=== PATIENT | male | born 1965 | race Caucasian/White ===

== ENCOUNTER 2016-09-24 00:58 | Inpatient (IN) | payer BC ==
[~2016-09-24] VITALS: Ht 167.6 cm; Wt 87.6 kg
[2016-09-24] MEDS ORDERED: MoRPHine SULFATE 4 MG/ML 1 ML CARP\\VIAL IV STA ×2 (01:12→02:37)
[2016-09-24] MEDS ORDERED: ONDANSETRON INJ 2 MG/ML 2 ML VIAL IV STA (01:12)
[2016-09-24] MEDS ORDERED: SODIUM CHLORIDE 0.9% 1000ML 1,000 ML IV STA (01:12)
[2016-09-24 01:39] LABS: BASO % 0.8 %; BASO ABS # 0.06 K/uL (0-0.2); COMPLETE YES; EOS % 4.4 %; HEMATOCRIT 42.5 % (42-52); IG% 0.3 %; LYMPH % 18.9 %; LYMPH ABS # 1.41 K/uL (1.2-3.4); MEAN CELL VOLUME 89.1 fL (80-100); MEAN CORPUSCULAR HEMOGLOBIN 32.9 pg (25-34); MEAN CORPUSCULAR HGB CONC 36.9 g/dl (32-36); MONO % 6.6 %; PLATELET COUNT 220 K/uL (130-400); RED BLOOD COUNT 4.77 M/uL (4.7-6.1); WHITE BLOOD COUNT 7.48 K/uL (4.8-10.8)
[2016-09-24] MEDS ORDERED: ASCO1CAP3 PO (01:45)
[2016-09-24 01:57] LABS: ALT/SGPT 26 U/L (12-78); AST/SGOT 17 U/L (15-37); BLOOD UREA NITROGEN 19 mg/dl (7-18); BUN/CREATININE RATIO 23.1 (10-20); CALCIUM 8.5 mg/dl (8.5-10.1); CARBON DIOXIDE 25 mmol/L (21-32); CHLORIDE 107 mmol/L (98-107); GLUCOSE 119 mg/dl (70-99); POTASSIUM 3.9 mmol/L (3.5-5.1); SODIUM 142 mmol/L (136-145)
[2016-09-24 02:02] LABS: ALKALINE PHOSPHATASE 91 U/L (45-117); CKMB/CK RATIO 0.8 (0-3.0)
[2016-09-24] MEDS ORDERED: OPTIRAY 320 IV PRN (03:15)
[2016-09-24] MEDS ORDERED: HYDROmorphone INJ 1 MG/ML SYR IV STA (03:28)
[2016-09-24 04:57] LABS: AMYLASE 75 U/L (25-115)
[2016-09-24] MEDS ORDERED: HYDROmorphone INJ 0.5 MG/0.5 ML SYR IV STA (05:50)
--- NOTE | 2016-09-24 05:50 | EMERGENCY ROOM VISIT NOTE ---
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 States, "I think I have a gallstone." Recently ate peanuts and pizza. Denies n/v. History of Present Illness The patient is a 51 year old male who presents to the Emergency Room with complaints of epigastric pain for the past 3 hours described as aching, ranging in severity 5 out of 10. Patient had pizza tonight. No history of similar symptoms in the past. No recent alcohol. Patient denies chest pain, dyspnea, fever, chills, vomiting, diarrhea, diaphoresis, leg pain or swelling. Review of Systems See HPI for pertinent positives & negatives. A total of 10 systems reviewed and were otherwise negative. Past Medical/Surgical History Medical Problems: (1) Kidney stone Family History Diabetes mellitus Heart disease Kidney disease Social History Smoking Status: Never Smoker Marital Status: Occupation Status: employed Current/Historical Medications Scheduled Ascorbic Acid (Vitamin C), 500 MG PO DAILY Allergies Coded Allergies: No Known Allergies (Unverified , 09/24/16) Physical Exam Vital Signs Date Time Temp Pulse Resp B/P Pulse Ox O2 Delivery O2 Flow Rate FiO2 09/24/16 03:49 61 18 132/82 96 Room Air 09/24/16 02:36 57 16 140/87 95 Room Air 09/24/16 01:36 Room Air 09/24/16 01:36 Room Air 09/24/16 01:03 36.6 57 18 190/105 95 Room Air Physical Exam VITALS: Vitals are noted on the nurse's note and reviewed by myself. Vital signs hypertensive GENERAL: Pleasant male, in no acute distress, nondiaphoretic, well-developed well-nourished. SKIN: The skin was without rashes, erythema, edema, or bruising. There is no tenting of the skin. Capillary reflex less than 2 seconds. HEAD: Normocephalic atraumatic. EARS: External auditory canals clear, tympanic membranes pearly lubin without erythema or effusion bilaterally. EYES: Pupils equal round and reactive to light and accommodation. Conjunctivae without injection, sclerae without icterus. Extraocular movements intact. NOSE: Patent, turbinates without inflammation or discharge. MOUTH: Mucous membranes moist. Pharynx without erythema or exudate. Uvula midline. Airway patent. Tongue does not deviate. NECK: Supple without nuchal rigidity. No lymphadenopathy. No thyromegaly. Cervical spine is nontender. No JVD. HEART: Regular rate and rhythm without murmurs gallops or rubs. LUNGS: Clear to auscultation bilaterally without wheezes, rales or rhonchi. No dullness to percussion. No retractions or accessory muscle use. ABDOMEN: Positive bowel sounds x 4. Normal tympanic percussion. Soft, tender to palpation epigastric region, no CVA tenderness, without masses or organomegaly. No guarding or rebound tenderness. MUSCULOSKELETAL: No muscle atrophy, erythema, or edema noted. NEURO: Patient was alert and oriented to person place and time. Normal sensation to light and sharp touch. No focal neurological deficits. Medical Decision & Procedures Laboratory Results 09/24/16 01:30 Red Blood Count 4.77, Mean Corpuscular Volume 89.1, Mean Corpuscular Hemoglobin 32.9, Mean Corpuscular Hemoglobin Concent 36.9, Mean Platelet Volume 10.0, Neutrophils (%) (Auto) 69.0, Lymphocytes (%) (Auto) 18.9, Monocytes (%) (Auto) 6.6, Eosinophils (%) (Auto) 4.4, Basophils (%) (Auto) 0.8, Neutrophils # (Auto) 5.17, Lymphocytes # (Auto) 1.41, Monocytes # (Auto) 0.49, Eosinophils # (Auto) 0.33, Basophils # (Auto) 0.06 09/24/16 01:30 Test 09/24/16 01:30 09/24/16 05:05 White Blood Count 7.48 K/uL (4.8-10.8) Red Blood Count 4.77 M/uL (4.7-6.1) Hemoglobin 15.7 g/dL (14.0-18.0) Hematocrit 42.5 % (42-52) Mean Corpuscular Volume 89.1 fL (80-100) Mean Corpuscular Hemoglobin 32.9 pg (25-34) Mean Corpuscular Hemoglobin Concent 36.9 g/dl (32-36) Platelet Count 220 K/uL (130-400) Mean Platelet Volume 10.0 fL (7.4-10.4) Neutrophils (%) (Auto) 69.0 % Lymphocytes (%) (Auto) 18.9 % Monocytes (%) (Auto) 6.6 % Eosinophils (%) (Auto) 4.4 % Basophils (%) (Auto) 0.8 % Neutrophils # (Auto) 5.17 K/uL (1.4-6.5) Lymphocytes # (Auto) 1.41 K/uL (1.2-3.4) Monocytes # (Auto) 0.49 K/uL (0.11-0.59) Eosinophils # (Auto) 0.33 K/uL (0-0.5) Basophils # (Auto) 0.06 K/uL (0-0.2) RDW Standard Deviation 38.8 fL (36.4-46.3) RDW Coefficient of Variation 12.2 % (11.5-14.5) Immature Granulocyte % (Auto) 0.3 % Immature Granulocyte # (Auto) 0.02 K/uL (0.00-0.02) Anion Gap 10.0 mmol/L (3-11) Est Creatinine Clear Calc Drug Dose 114.5 ml/min Estimated GFR () 120.7 Estimated GFR (Non- 104.2 BUN/Creatinine Ratio 23.1 (10-20) Calcium Level 8.5 mg/dl (8.5-10.1) Total Bilirubin 0.3 mg/dl (0.2-1) Direct Bilirubin < 0.1 mg/dl (0-0.2) Aspartate Amino Transf (AST/SGOT) 17 U/L (15-37) Alanine Aminotransferase (ALT/SGPT) 26 U/L (12-78) Alkaline Phosphatase 91 U/L (45-117) Total Creatine Kinase 107 U/L (39-308) Creatine Kinase MB 0.9 ng/ml (0.5-3.6) Creatine Kinase MB Ratio 0.8 (0-3.0) Total Protein 7.4 gm/dl (6.4-8.2) Albumin 3.9 gm/dl (3.4-5.0) Amylase Level 75 U/L (25-115) Lipase 230 U/L (73-393) Lactic Acid Level 1.0 mmol/L (0.4-2.0) Medications Administered Medications (Trade) Dose Ordered Sig/Pamela Route Start Time Stop Time Status Last Admin Dose Admin Ondansetron HCl (Zofran Inj) 4 mg NOW STAT IV 09/24/16 01:12 09/24/16 01:14 DC 09/24/16 01:28 4 MG Morphine Sulfate 4 mg 4 mg NOW STAT IV 09/24/16 01:12 09/24/16 01:14 DC 09/24/16 01:28 4 MG Sodium Chloride (Nss 1000ml) 1,000 ml @ 200 mls/hr Q5H STAT IV 09/24/16 01:12 09/24/16 06:11 09/24/16 01:28 200 MLS/HR Morphine Sulfate (MoRPHine SULFATE INJ) 4 mg NOW STAT IV 09/24/16 02:37 09/24/16 02:38 DC 09/24/16 02:41 4 MG Hydromorphone HCl (Dilaudid Inj) 1 mg NOW STAT IV 09/24/16 03:28 09/24/16 03:29 DC 09/24/16 03:37 1 MG ED Course Prior records/ancillary studies reviewed. Triage Nursing notes reviewed. The patient's history was concerning for abdominal pain. Differential diagnosis: Etiologies such as appendicitis, diverticulitis, PUD, cardiac, biliary pathology , UTI, pancreatitis, obstruction, mesenteric ischemia, aortic pathology, infections, inflammatory bowel disease, renal colic, as well as others were entertained. Physical examination findings: As above. ER treatment provided: Morphine, Zofran, IV fluids On reassessment the patient felt better. Diagnostics interpreted by me: ECG: Normal sinus, normal intervals, no acute ST-T wave changes. Impression normal sinus rhythm interpreted by myself The labs revealed a negative lactic acid. Negative troponin No worrisome leukocytosis Imaging studies: CTA CHEST: No thoracic aortic aneurysm, dissection, or intramural hematoma. Lungs are clear. No pleural effusion or pneumothorax. Heart size is normal. No pericardial effusion. CTA ABDOMEN & PELVIS: No abdominal aortic aneurysm or dissection. Focal bowel wall thickening and mesenteric edema involving a segment of small bowel in the right hemiabdomen. Findings are compatible with enteritis, likely infectious versus inflammatory or less likely ischemic. Small amount of free fluid adjacent to the above process. No free air. No evidence of bowel obstruction. Appendix is normal. Gallbladder, pancreas, spleen, adrenals, and kidneys are unremarkable., Tiny hypodensity in the left hepatic lobe, too small to characterize but likely a cyst. Anatomic variant with the common hepatic artery arising directly from the aorta. Radiologist: Torito Coats MD Chest x-ray with no acute consolidation or pneumothorax or free air per my interpretation Consultation: A consultation was placed with the hospitalist, Dr. Edwards. The case was discussed and diagnostics were reviewed. The patient was evaluated in the ER for further treatment. Exam and history seem consistent with enteritis with intractable pain. Patient was given multiple rounds of pain medicine was still uncomfortable. He will be evaluated by medicine for possible admission. He had a negative lactic acid. I did not believe this is ischemic bowel. By the evaluation outlined above emergent etiologies such as appendicitis, diverticulitis, PUD, biliary pathology, UTI, pancreatitis, obstruction, mesenteric ischemia, aortic pathology, infections, inflammatory bowel disease, renal colic, as well as others were deemed relatively unlikely. The pt informed about the findings as listed above. All questions were answered and pleased with the treatment. case reviewed with my Attending Medical Decision As above Impression Primary Impression: Enteritis Additional Impression: Intractable epigastric abdominal pain Departure Information Referrals Jason Flores III, CRNP (PCP) Patient Instructions My [facility] Problem Qualifiers
--- NOTE | 2016-09-24 06:16 | History and Physical ---
History & Physical Date & Time of Service: Sep 24, 2016 at 05:47 Chief Complaint: Abd Pain Primary Care Physician: Jason Flores III, CRNP History of Present Illness Source: patient 51 y/o M who denies any significant medical Hx presents with moderate to severe R sided abdominal pain. Pt denies N/V/D or fevers. He had a normal BM and 3 slices of pizza a few hours prior to the onset of pain. A CT abdomen was consistent with enteritis affecting a small segment of small bowel in the R hemiabdomen. The pt received several doses of pain medication in the ER but exhibited recurrence and then became very nauseous after trying to drink a glass of water. As his pain remains present and he is unable to tolerate PO, he will be admitted for pain management, IVF and antiemetics. 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 Smoking Status: Never Smoker Marital Status: Occupational Status: employed Multi-Drug Resistant Organisms History of MDRO: No Allergies Coded Allergies: No Known Allergies (Unverified , 09/24/16) Home Medications Scheduled Ascorbic Acid (Vitamin C), 500 MG PO DAILY Review of Systems Constitutional: No chills, No fever, No sweats Eyes: No eye pain, No worsening of vision ENT: No hearing loss, No nasal symptoms, No unusual epistaxis Respiratory: No cough, No sputum, No wheezing Cardiovascular: No PND, No chest pain, No orthopnea Abdomen: + nausea, + pain Musculoskeletal: No joint pain, No muscle pain Genitourinary - Male: No dysuria, No hematuria, No urinary frequency, No urinary urgency Neurologic: No memory loss, No paralysis, No weakness Hematologic / Lymphatic: No abnormal bleeding/bruising Integumentary: No rash Allergic / Immunologic: No environmental allergies Physical Exam Vital Signs Date Time Temp Pulse Resp B/P Pulse Ox O2 Delivery O2 Flow Rate FiO2 09/24/16 03:49 61 18 132/82 96 Room Air 09/24/16 02:36 57 16 140/87 95 Room Air 09/24/16 01:36 Room Air 09/24/16 01:36 Room Air 09/24/16 01:03 36.6 57 18 190/105 95 Room Air General Appearance: WD/WN, no apparent distress Head: normocephalic Eyes: normal inspection, EOMI ENT: normal ENT inspection, hearing grossly normal, TMs normal, pharynx normal Neck: supple, no JVD Respiratory/Chest: chest non-tender, lungs clear, normal breath sounds, no respiratory distress, no accessory muscle use Cardiovascular: regular rate, rhythm, no edema, no gallop, no JVD, no murmur, normal peripheral pulses Abdomen/GI: normal bowel sounds, soft, + tenderness (Diffuse mild tenderness - no guarding or rebound) Back: normal inspection, no CVA tenderness Extremities/Musculoskelatal: normal inspection, no calf tenderness, normal capillary refill, no pedal edema, normal range of motion Neurologic/Psych: airway traffic controller II-XII nml as tested, no motor/sensory deficits, alert, normal mood/affect, normal reflexes, oriented x 3 Skin: normal color, warm/dry, no rash Diagnostics Laboratory Results Results Past 24 Hours Test 09/24/16 01:30 09/24/16 05:05 Range/Units White Blood Count 7.48 4.8-10.8 K/uL Red Blood Count 4.77 4.7-6.1 M/uL Hemoglobin 15.7 14.0-18.0 g/dL Hematocrit 42.5 42-52 % Mean Corpuscular Volume 89.1 80-100 fL Mean Corpuscular Hemoglobin 32.9 25-34 pg Mean Corpuscular Hemoglobin Concent 36.9 32-36 g/dl Platelet Count 220 130-400 K/uL Mean Platelet Volume 10.0 7.4-10.4 fL Neutrophils (%) (Auto) 69.0 % Lymphocytes (%) (Auto) 18.9 % Monocytes (%) (Auto) 6.6 % Eosinophils (%) (Auto) 4.4 % Basophils (%) (Auto) 0.8 % Neutrophils # (Auto) 5.17 1.4-6.5 K/uL Lymphocytes # (Auto) 1.41 1.2-3.4 K/uL Monocytes # (Auto) 0.49 0.11-0.59 K/uL Eosinophils # (Auto) 0.33 0-0.5 K/uL Basophils # (Auto) 0.06 0-0.2 K/uL RDW Standard Deviation 38.8 36.4-46.3 fL RDW Coefficient of Variation 12.2 11.5-14.5 % Immature Granulocyte % (Auto) 0.3 % Immature Granulocyte # (Auto) 0.02 0.00-0.02 K/uL Sodium Level 142 136-145 mmol/L Potassium Level 3.9 3.5-5.1 mmol/L Chloride Level 107 98-107 mmol/L Carbon Dioxide Level 25 21-32 mmol/L Anion Gap 10.0 3-11 mmol/L Blood Urea Nitrogen 19 7-18 mg/dl Creatinine 0.80 0.60-1.40 mg/dl Est Creatinine Clear Calc Drug Dose 114.5 ml/min Estimated GFR () 120.7 Estimated GFR (Non- 104.2 BUN/Creatinine Ratio 23.1 10-20 Random Glucose 119 70-99 mg/dl Calcium Level 8.5 8.5-10.1 mg/dl Total Bilirubin 0.3 0.2-1 mg/dl Direct Bilirubin < 0.1 0-0.2 mg/dl Aspartate Amino Transf (AST/SGOT) 17 15-37 U/L Alanine Aminotransferase (ALT/SGPT) 26 12-78 U/L Alkaline Phosphatase 91 45-117 U/L Total Creatine Kinase 107 39-308 U/L Creatine Kinase MB 0.9 0.5-3.6 ng/ml Creatine Kinase MB Ratio 0.8 0-3.0 Total Protein 7.4 6.4-8.2 gm/dl Albumin 3.9 3.4-5.0 gm/dl Amylase Level 75 25-115 U/L Lipase 230 73-393 U/L Lactic Acid Level 1.0 0.4-2.0 mmol/L Diagnostic Radiology Thickening involving section of small bowel in R hemiabdomen with surrounding edema Normal EKG Impression Assessment and Plan 51 y/o M who denies any significant medical Hx presents with moderate to severe R sided abdominal pain. Pt denies N/V/D or fevers. He had a normal BM and 3 slices of pizza a few hours prior to the onset of pain. A CT abdomen was consistent with enteritis affecting a small segment of small bowel in the R hemiabdomen. The pt received several doses of pain medication in the ER but exhibited recurrence and then became very nauseous after trying to drink a glass of water. As his pain remains present and he is unable to tolerate PO, he will be admitted for pain management, IVF and antiemetics. Pt is admitted for presumed enteritis - lactic and amylase in addition to lack of vascular history would make ischemia less likely We will treat with IVF, antiemetics and narcotics as needed. Would hold off on antibiotics for time being as he has no leukocytosis or temp. Would involve GI if symptoms worsen or fail to improve. Full code, Heparin prophylaxis Total time for this admit including review of labs, imaging, previous records - discussion with ER attending and pt - 33 min Level of Care Med/Surg Resuscitation Status FULL RESUSCITATION VTE Prophylaxis Risk Level: Very Low Given or contraindicated: Unfractionated heparin SQ
[2016-09-24] MEDS ORDERED: IV FLUIDS COMPLETED PRN (06:30)
--- NOTE | 2016-09-24 06:42 | DIAGNOSTIC IMAGING REPORT ---
BILIARY ULTRASOUND CLINICAL HISTORY: Epigastric pain COMPARISON STUDY: No previous studies for comparison. FINDINGS: The head and proximal body of pancreas appear normal. The tail is poorly visualized. The liver was of increased echogenicity, a nonspecific finding most often seen in hepatic steatosis. There is a 7 mm left lobe hepatic cyst. No gallstones are visualized. There is no ductal dilatation. The common bile duct measures 5 mm. There is no right-sided hydronephrosis. IMPRESSION: 1. Ultrasonographically normal gallbladder. No evidence of ductal dilatation 2. Increased hepatic echogenicity, most likely secondary to hepatic steatosis Electronically signed by: Lux Apple M.D. 09/24/2016 6:41 AM Dictated Date/Time: 09/24/2016 6:39 AM
[2016-09-24 06:50] LABS: PARTIAL THROMBOPLASTIN RATIO 1.1; PROTHROMBIN TIME (PATIENT) 10.7 SECONDS (9.0-12.0)
--- NOTE | 2016-09-24 07:00 | DIAGNOSTIC IMAGING REPORT ---
CHEST ONE VIEW PORTABLE CLINICAL HISTORY: Atypical chest pain COMPARISON STUDY: 01/11/2015 FINDINGS: The heart is the upper limits of normal in size. There is no failure. There is no focal pulmonary consolidation. There are no pleural effusions. There are minor right basilar atelectatic changes.[ IMPRESSION: No active disease in the chest. Electronically signed by: Lux Apple M.D. 09/24/2016 6:58 AM Dictated Date/Time: 09/24/2016 6:57 AM
[2016-09-24 08:00] VITALS: BP 122/70; PULSE 50; TEMP 36.7; O2SAT 98; Ht 167.6 cm; Wt 87.6 kg
[2016-09-24] MEDS: D5NSS + 20MEQ KCL 1,000 ML IV SCH ×2 (08:13→17:16)
[2016-09-24] MEDS: HEPARIN SOD 5000 UNIT/0.5 ML CARP SQ SCH ×3 (08:18→22:16)
--- NOTE | 2016-09-24 08:21 | DIAGNOSTIC IMAGING REPORT ---
CT ANGIOGRAM OF THE CHEST, ABDOMEN, AND PELVIS COMBO CLINICAL HISTORY: Epigastric abdominal pain. COMPARISON STUDY: Chest x-ray dated 09/24/2016. Abdominal ultrasound dated 09/24/2016. TECHNIQUE: Before and following the IV administration of 92 cc of Optiray 320, CT angiogram of the chest, abdomen, and pelvis was performed from the thoracic inlet to the proximal femora. Images are reviewed in the axial, sagittal, and coronal planes. 3-D MIPS images are created and assessed. IV contrast was administered without complication. Automated dose control exposure was utilized. CT DOSE: 1641.97 mGy.cm FINDINGS: CHEST: Thyroid: Imaged portions of the thyroid gland are normal in size and attenuation. Thoracic aorta: No intramural hematoma is identified on the unenhanced series. The thoracic aorta is normal in course and caliber. The aortic arch demonstrates standard 3-vessel anatomy. No dissection is seen. The arch vessels are widely patent. Heart: The heart is normal in size and configuration, and without pericardial effusion. The pulmonary trunk is normal in caliber. Lungs and pleural spaces: The lungs and pleural spaces are clear noting dependent atelectasis. The trachea and central airways are patent. Mediastinum: There is no mediastinal lymphadenopathy. Radha: Clear. Axillae: There is no axillary lymphadenopathy. Bony thorax: No destructive bony lesions are identified. ABDOMEN AND PELVIS: Liver: The contrast-enhanced liver is normal in size, contour, and attenuation. There is no intrahepatic biliary ductal dilatation. There is a 1.2 cm peripherally enhancing lesion in the left hepatic lobe seen on image #[id number]. The enhancement appears to be peripheral and discontinuous/nodular suggesting that this likely represent a hemangioma. An additional 9 mm hypodensity in the left lobe seen on image #276 likely represents a cyst when correlated with today's ultrasound. Gallbladder: Unremarkable. Spleen: Normal in size and attenuation. Pancreas: Unremarkable. Adrenal glands: Unremarkable. Kidneys: No renal calculi are identified on the unenhanced series. The contrast enhanced kidneys are normal in size and without hydronephrosis. The kidneys enhance symmetrically. Abdominal aorta and iliac arteries: There is mild atherosclerotic calcification of the abdominal aorta which is normal in caliber. The abdominal aorta and iliac arteries are widely patent. No dissection is identified. Major branches of the abdominal aorta: The celiac trunk, superior mesenteric, and inferior mesenteric arteries are widely patent. The common hepatic artery arises directly from the abdominal aorta . The splenic artery is patent. There are single bilateral renal arteries which appear widely patent. Bowel: There is no bowel obstruction. There is a long segment of abnormal small bowel identified in the right upper to mid abdomen. The wall is thickened and edematous and there is significant surrounding inflammatory change with venous engorgement. No pneumatosis intestinalis or portal venous gas is seen. There is interloop fluid identified. This does not involve the distal/terminal ileum. There are scattered colonic diverticula without CT evidence of acute diverticulitis. The appendix is well-visualized and normal. Peritoneum: There is no intraperitoneal free air or abdominal ascites. Lymphadenopathy: None. Pelvic viscera: The bladder, prostate, and seminal vesicles are normal as visualized.. Surgical clips are noted along the spermatic cord bilaterally. There are small bilateral fat-containing inguinal hernias. Skeletal structures: No lytic or blastic bony lesions are seen. There are bilateral pars defects at L5. No anterolisthesis is seen at L5-S1. IMPRESSION: 1. There is no aneurysm or dissection identified involving the thoracic or abdominal aorta. 2. The lungs are clear. 3. There is a long segment of thick-walled and edematous small bowel in the right upper to mid abdomen. This spares the distal/terminal ileum. There is associated interloop fluid. No pneumatosis intestinalis, portal venous gas, or intraperitoneal free air is seen. The appearance is consistent with a nonspecific enteritis, which could be on an infectious, inflammatory, or less likely an ischemic basis. Clinical correlation will be required. 4. Unremarkable CT angiogram of the major branches of the abdominal aorta. 5. There is a 1.2 cm enhancing lesion the left hepatic lobe. Although incompletely characterized, the appearance strongly suggests a benign hemangioma. 6. Additional findings as above. Electronically signed by: Donovan Valente M.D. 09/24/2016 8:19 AM Dictated Date/Time: 09/24/2016 8:02 AM
[2016-09-24] MEDS: HYDROmorphone INJ 0.5 MG/0.5 ML SYR IV PRN ×3 (09:46→17:20)
[2016-09-24] MEDS ORDERED: INFLUENZA VIRUS QUAD VACCINE 0.5 ML SYR IM. ONE (12:15)
[2016-09-24] MEDS ORDERED: INFLUENZA ADMINISTRATION CHARGE ONE (12:15)
[2016-09-24 16:06] VITALS: BP 123/72; PULSE 53; TEMP 36.6; O2SAT 97
--- NOTE | 2016-09-24 17:01 | Progress Note ---
Subjective Date of Service: Sep 24, 2016. Subjective Pt evaluation today including: conversation w/ patient, physical exam, chart review, lab review, review of studies, conversation w/ edi consultant, review of inpatient medication list Voiding: no voiding problems still have a lot abd pain , need iv pain med, was having nausea this am, no more , but not passing gas or bm, no f/c, not hungry Problem List Medical Problems: (1) Enteritis Status: Acute (2) Intractable epigastric abdominal pain Status: Acute Review of Systems Constitutional: No chills, No fatigue, No fever, No problem reported, No sweats , No weakness, No weight loss Eyes: No diplopia, No discharge, No eye pain, No redness, No worsening of vision ENT: No dental problems, No hearing loss, No nasal symptoms, No sore throat, No tinnitus, No trouble swallowing, No unusual epistaxis Respiratory: No cough, No dyspnea at rest, No dyspnea on exertion, No hemoptysis, No shortness of breath, No sputum, No wheezing Cardiac: No PND, No chest pain, No claudication, No edema, No orthopnea, No palpitations Abdomen: + nausea, + pain, + see HPI, No constipation, No diarrhea, No vomiting Musculoskeletal: No calf pain, No joint pain, No muscle pain, No swelling Male : No dysuria, No hematuria, No incontinence, No nocturia more than once/ night, No slowing stream, No urinary frequency Neurologic: No balance problems, No memory loss, No numbness/tingling, No paralysis, No vertigo, No weakness Psychiatric: No anhedonism, No anxiety, No depression symptoms, No insomnia, No substance abuse Heme: No abnormal bleeding/bruising, No clotting problems, No night sweats, No swollen lymph nodes Endo: No excessive thirst, No excessive urination, No fatigue Skin: No bleeding, No color change, No itch, No new/changing skin lesions, No rash Objective Vital Signs Date Time Temp Pulse Resp B/P Pulse Ox O2 Delivery O2 Flow Rate FiO2 09/24/16 16:06 36.6 53 18 123/72 97 Room Air 09/24/16 08:00 36.7 50 18 122/70 98 Room Air 09/24/16 06:30 36.4 55 16 126/79 95 09/24/16 06:01 55 16 126/79 95 Room Air 09/24/16 03:49 61 18 132/82 96 Room Air 09/24/16 02:36 57 16 140/87 95 Room Air 09/24/16 01:36 Room Air 09/24/16 01:36 Room Air 09/24/16 01:03 36.6 57 18 190/105 95 Room Air Physical Exam General Appearance: WD/WN, no apparent distress Eyes: normal inspection, PERRL, EOMI, sclerae normal ENT: normal ENT inspection, hearing grossly normal, pharynx normal Neck: supple, no adenopathy, thyroid normal, no JVD, no carotid bruits, trachea midline Respiratory/Chest: chest non-tender, lungs clear, normal breath sounds, no respiratory distress, no accessory muscle use Cardiovascular: regular rate, rhythm, no edema, no gallop, no JVD, no murmur Abdomen: normal bowel sounds, soft, no organomegaly, no pulsatile mass, + tenderness (mild ) Extremities: normal range of motion, non-tender, normal inspection, no pedal edema, no calf tenderness, normal capillary refill, pelvis stable Neurologic/Psychiatric: concrete block layer II-XII nml as tested, no motor/sensory deficits, alert, normal mood/affect, oriented x 3 Skin: normal color, warm/dry, no rash Lymphatic: no adenopathy Laboratory Results Last 24 Hours Test 09/24/16 01:30 09/24/16 01:35 09/24/16 03:46 09/24/16 05:05 White Blood Count 7.48 K/uL Red Blood Count 4.77 M/uL Hemoglobin 15.7 g/dL Hematocrit 42.5 % Mean Corpuscular Volume 89.1 fL Mean Corpuscular Hemoglobin 32.9 pg Mean Corpuscular Hemoglobin Concent 36.9 g/dl Platelet Count 220 K/uL Mean Platelet Volume 10.0 fL Neutrophils (%) (Auto) 69.0 % Lymphocytes (%) (Auto) 18.9 % Monocytes (%) (Auto) 6.6 % Eosinophils (%) (Auto) 4.4 % Basophils (%) (Auto) 0.8 % Neutrophils # (Auto) 5.17 K/uL Lymphocytes # (Auto) 1.41 K/uL Monocytes # (Auto) 0.49 K/uL Eosinophils # (Auto) 0.33 K/uL Basophils # (Auto) 0.06 K/uL RDW Standard Deviation 38.8 fL RDW Coefficient of Variation 12.2 % Immature Granulocyte % (Auto) 0.3 % Immature Granulocyte # (Auto) 0.02 K/uL Prothrombin Time 10.7 SECONDS Prothromb Time International Ratio 1.0 Activated Partial Thromboplast Time 27.8 SECONDS Partial Thromboplastin Ratio 1.1 Sodium Level 142 mmol/L Potassium Level 3.9 mmol/L Chloride Level 107 mmol/L Carbon Dioxide Level 25 mmol/L Anion Gap 10.0 mmol/L Blood Urea Nitrogen 19 mg/dl Creatinine 0.80 mg/dl Est Creatinine Clear Calc Drug Dose 114.5 ml/min Estimated GFR () 120.7 Estimated GFR (Non- 104.2 BUN/Creatinine Ratio 23.1 Random Glucose 119 mg/dl Calcium Level 8.5 mg/dl Total Bilirubin 0.3 mg/dl Direct Bilirubin < 0.1 mg/dl Aspartate Amino Transf (AST/SGOT) 17 U/L Alanine Aminotransferase (ALT/SGPT) 26 U/L Alkaline Phosphatase 91 U/L Total Creatine Kinase 107 U/L Creatine Kinase MB 0.9 ng/ml Creatine Kinase MB Ratio 0.8 Total Protein 7.4 gm/dl Albumin 3.9 gm/dl Amylase Level 75 U/L Lipase 230 U/L Bedside Troponin I 0.000 ng/ml Bedside Lactic Acid Venous 0.94 mmol/L Lactic Acid Level 1.0 mmol/L Assessment and Plan 51 y/o M who denies any significant medical Hx presents with moderate to severe R sided abdominal pain on 09/24/2015 enteritis with thick-walled and edematous small bowel in the right upper to mid abdomen. nonspecific enteritis, which could be on an infectious, inflammatory, or less likely an ischemic basis. 1.2 cm enhancing lesion the left hepatic lobe in Ct but in [place] reported a 7 mm left lobe hepatic cys I told him to follow up with pcp or GI Plan: cont treat with IVF, antiemetics and narcotics as needed. cont hold off on antibiotics for time being as he has no leukocytosis or temp. gi consult Full code, Heparin prophylaxis d/w pt and rn Continued [facility] stay due to: multiple IV medications needed Discharge planning: home
[2016-09-24 18:00] VITALS: O2SAT 97
[2016-09-24 23:45] VITALS: BP 150/79; PULSE 59; TEMP 36.8; O2SAT 94
--- NOTE | 2016-09-25 01:57 | GASTROINTESTINAL CONSULTATION ---
DATE OF CONSULTATION: 09/24/2016 CHIEF COMPLAINT: Abnormal CT finding, focal small-bowel abnormality with enteritis, right-sided abdominal pain. HISTORY OF PRESENT ILLNESS: Mr. Pillai is a 51-year-old white male who was in his usual state of health until yesterday when several hours after eating pizza and drinking water he began to develop an increasing right-sided abdominal pain. The patient denies any fever or chills during this event and did not have diarrhea or constipation. The patient waited at home for several hours expecting that this would pass; however, this did not occur and the patient's abdominal pain required him to have an ER evaluation. There is no prior history of inflammatory bowel disease, prior gastrointestinal symptoms, and the patient is otherwise in good health overall. During the Emergency Room visit, the patient had an evaluation including a gallbladder ultrasound, chest x-ray and angiography. The gallbladder ultrasound was unremarkable for acute gallbladder disease, although there is a fatty appearance to the liver. There were no gallstones appreciated, bile duct was 5 mm in size. The chest x-ray revealed no acute disease. A CT angiography was performed this morning of the abdomen and pelvis and identified a left hepatic lobe lesion that likely reflects a hemangioma but also a long segment of abnormal small-bowel in the right upper to mid abdomen. The wall was thickened with edema with surrounding inflammation and venous engorgement. However, there is no pneumatosis or obvious portal gas identified. There is some fluid between the loops of small-bowel in this region; however, this specifically does not involve the distal or terminal ileum. There is colonic diverticula noted without evidence of diverticulitis. The appendix appears normal. There is no abnormal adenopathy in this area. PAST MEDICAL HISTORY: Includes a single event of a kidney stone several years ago. FAMILY HISTORY: Diabetes, heart disease and kidney disease. Father had an aortic valve replacement and mother has diabetes. SOCIAL HISTORY: The patient is a arc and gas welder. Denies tobacco usage and only rarely drinks alcoholic beverages. He is physically active, however, denies any trauma to the abdominal wall. He has never smoked. He is , has 3 children, none of whom have any features of chronic gastrointestinal illnesses or known history of inflammatory bowel disease, this includes his other first- and second-degree relatives. ALLERGIES: The patient has no known drug allergies. HOME MEDICATIONS: Include only ascorbic acid. REVIEW OF SYSTEMS: Essentially noncontributory based on 14-point exam except for mentioned above. There is no history of vomiting, hematemesis, coffee-ground emesis, melena, bright red blood per rectum, diarrhea or constipation. There is no dysuria or hematuria reported. The patient has no disorders in gait or localizing neurologic symptoms. The patient denies rashes or changes in hair. There is no evidence of jaundice for the patient. PHYSICAL EXAMINATION: VITAL SIGNS: On admission, blood pressure is 190/105 with a pulse ox 95% on room air. The patient is afebrile at 36.6, pulse 57, respirations 18. GENERAL: At the present time, the patient is ambulating slightly in the bedroom and was transferred to the fourth floor. The patient is awake, alert and oriented x3. HEENT: The patient's sclerae are anicteric. Oral mucosa is moist. NECK: There is no cervical or supraclavicular adenopathy. I do not appreciate thyromegaly. HEART: Normal S1, S2. LUNGS: Clear to auscultation without rales, rhonchi or wheezes. ABDOMEN: Soft, minimally tender on the right side of the abdomen, without rebound or guarding. There are normal bowel sounds. I do not appreciate hepatosplenomegaly. There is no evidence of abdominal bruits, ascites or shifting dullness. EXTREMITIES: Without clubbing, cyanosis or edema. RECTAL: Deferred at this time. LABORATORY STUDIES: On admission included a white count of 7.5, hemoglobin 15.7, MCV 89, platelets 220,000. BUN and creatinine are 19 and 0.8. Bicarbonate level of 25. Potassium 3.9. Liver test showed a bilirubin of 0.3, AST 17, ALT 26, alkaline phosphatase 91, total creatinine is 107, lipase 230, amylase is 75. Lactate level is 1.0 (normal). IMPRESSION AND PLAN: Mr. Pillai is a 51-year-old male with no significant past history, who developed acute abdominal pain on the right side a few hours after eating pizza and ingestion of water. The people who were with him had no similar symptoms develop. There was no fever to his knowledge, diarrhea or change in his stool patterns, and he developed nausea mostly upon receiving narcotic analgesics in the Emergency Room to control his pain. The patient denies use of NSAIDs. The source of the patient's focal abnormality is unclear. It does not appear that there is acute or chronic vascular insufficiency described for the patient. Given the acute onset of this, a diagnosis of chronic inflammatory bowel disease would be difficult to make. This still may represent a viral enteritis as there is no drug use such as a nonsteroidal agent that would be responsible for these symptoms. In addition, the lactate level is normal, and therefore, acute mesenteric ischemia is less likely. I made the following recommendations. At the present time, I asked the patient to maintain an n.p.o. status and hydration will be performed with IV. If possible, he should minimize narcotics only to permit accurate abdominal exam and to avoid any subsequent nausea. Antiemetic therapy can be provided for him. If at some point if all symptoms resolve, it may be reasonable to perform a dedicated MR enterography or small-bowel followthrough to ensure that there are no persistent changes in the mid small-bowel as described by CT imaging. Further recommendations to follow after monitoring his progress over the next 12-[address] Mcclelland will be covering tomorrow and Dr. Bueno over the weekend, and further recommendations based on clinical presentation. At the present time, I would not consider use of antibiotics given the clear absence of infections features. If you have any questions, please contact this service. Thank you for allowing me to participate in this pleasant gentleman's care.
[2016-09-25] MEDS: HEPARIN SOD 5000 UNIT/0.5 ML CARP SQ SCH ×3 (06:14→21:59)
[2016-09-25 06:50] LABS: BUN/CREATININE RATIO 11.6 (10-20); CALCIUM 8.3 mg/dl (8.5-10.1); CREATININE 0.72 mg/dl (0.60-1.40); MAGNESIUM 2.2 mg/dl (1.8-2.4); PHOSPHORUS 2.8 mg/dl (2.5-4.9); POTASSIUM 3.9 mmol/L (3.5-5.1)
[2016-09-25 07:53] VITALS: BP 120/75; PULSE 54; TEMP 37.1; O2SAT 97
--- NOTE | 2016-09-25 09:37 | Progress Note ---
Subjective Date of Service: Sep 25, 2016. Subjective Pt evaluation today including: conversation w/ patient, physical exam, chart review, lab review, review of studies, conversation w/ media sales consultant, review of inpatient medication list Feeling a little better, last time pain IV medication was 28 hour ago, passing some gas, no bowel movement, no nausea vomiting, Right side abdominal pain is better, Problem List Medical Problems: (1) Enteritis Status: Acute (2) Intractable epigastric abdominal pain Status: Acute Review of Systems Constitutional: No chills, No fatigue, No fever, No problem reported, No sweats , No weakness, No weight loss Eyes: No diplopia, No discharge, No eye pain, No redness, No worsening of vision ENT: No dental problems, No hearing loss, No nasal symptoms, No sore throat, No tinnitus, No trouble swallowing, No unusual epistaxis Respiratory: No cough, No dyspnea at rest, No dyspnea on exertion, No hemoptysis, No shortness of breath, No sputum, No wheezing Cardiac: No PND, No chest pain, No claudication, No edema, No orthopnea, No palpitations Abdomen: + pain, No constipation, No diarrhea, No nausea, No vomiting Musculoskeletal: No calf pain, No joint pain, No muscle pain, No swelling Male : No dysuria, No hematuria, No incontinence, No nocturia more than once/ night, No slowing stream, No urinary frequency Neurologic: No balance problems, No memory loss, No numbness/tingling, No paralysis, No vertigo, No weakness Psychiatric: No anhedonism, No anxiety, No depression symptoms, No insomnia, No substance abuse Heme: No abnormal bleeding/bruising, No clotting problems, No night sweats, No swollen lymph nodes Endo: No excessive thirst, No excessive urination, No fatigue Skin: No bleeding, No color change, No itch, No new/changing skin lesions, No rash Objective Vital Signs Date Time Temp Pulse Resp B/P Pulse Ox O2 Delivery O2 Flow Rate FiO2 09/25/16 07:53 37.1 54 16 120/75 97 Room Air 09/25/16 00:00 Room Air 09/24/16 23:45 36.8 59 16 150/79 94 Room Air 09/24/16 19:48 Room Air 09/24/16 18:00 97 Room Air 09/24/16 16:06 36.6 53 18 123/72 97 Room Air Physical Exam General Appearance: WD/WN, no apparent distress Eyes: normal inspection, PERRL, EOMI, sclerae normal ENT: normal ENT inspection, hearing grossly normal, pharynx normal Neck: supple, no adenopathy, thyroid normal, no JVD, no carotid bruits, trachea midline Respiratory/Chest: chest non-tender, lungs clear, normal breath sounds, no respiratory distress, no accessory muscle use Cardiovascular: regular rate, rhythm, no edema, no gallop, no JVD, no murmur Abdomen: non tender, soft, no organomegaly, no pulsatile mass, + abnormal bowel sounds (decreased bowel sounds, but is improved compared to yesterday), + tenderness (mild when deep progressing) Extremities: normal range of motion, non-tender, normal inspection, no pedal edema, no calf tenderness, normal capillary refill, pelvis stable Neurologic/Psychiatric: patient safety tech II-XII nml as tested, no motor/sensory deficits, alert, normal mood/affect, oriented x 3 Skin: normal color, warm/dry, no rash Lymphatic: no adenopathy Laboratory Results Last 24 Hours Test 09/25/16 05:27 09/25/16 07:31 Sodium Level 141 mmol/L Potassium Level 3.9 mmol/L Chloride Level 108 mmol/L Carbon Dioxide Level 25 mmol/L Anion Gap 8.0 mmol/L Blood Urea Nitrogen 8 mg/dl Creatinine 0.72 mg/dl Est Creatinine Clear Calc Drug Dose 127.3 ml/min Estimated GFR () 126.1 Estimated GFR (Non- 108.8 BUN/Creatinine Ratio 11.6 Random Glucose 101 mg/dl Calcium Level 8.3 mg/dl Phosphorus Level 2.8 mg/dl Magnesium Level 2.2 mg/dl Assessment and Plan 51 y/o M who denies any significant medical Hx presents with moderate to severe R sided abdominal pain on 09/24/2015 enteritis with thick-walled and edematous small bowel in the right upper to mid abdomen. nonspecific enteritis, which could be on an infectious, inflammatory, or less likely an ischemic basis. GI input appreciated: patient denies use of NSAIDs. The source of the patient' s focal abnormality is unclear. Will minimize narcotics , may need to have MR enterography or small-bowel followthrough to ensure that there are no persistent changes in the mid small-bowel as described by CT imaging. I will very cautiously start some clear liquid because patient's symptom is improving, he is willing to try some. 1.2 cm enhancing lesion the left hepatic lobe in Ct but in [place] reported a 7 mm left lobe hepatic cys I told him to follow up with pcp or GI Plan: cont treat with IVF, antiemetics and no narcotics Clear liquid diet Increase activity Full code, Heparin prophylaxis d/w pt and rn Continued [facility] stay due to: multiple IV medications needed Discharge planning: home
[2016-09-25 10:16] LABS: BASO % 0.3 %; BASO ABS # 0.02 K/uL (0-0.2); EOS % 4.3 %; HEMATOCRIT 40.5 % (42-52); IG% 0.1 %; LYMPH % 18.4 %; LYMPH ABS # 1.46 K/uL (1.2-3.4); MEAN CELL VOLUME 91.2 fL (80-100); MEAN CORPUSCULAR HEMOGLOBIN 33.3 pg (25-34); MEAN PLATELET VOLUME 10.5 fL (7.4-10.4); MONO % 6.8 %; NEUT % 70.1 %; PLATELET COUNT 207 K/uL (130-400); RED BLOOD COUNT 4.44 M/uL (4.7-6.1); WHITE BLOOD COUNT 7.94 K/uL (4.8-10.8)
[2016-09-25 10:24] LABS: COMPLETE YES; MEAN CORPUSCULAR HGB CONC 36.5 g/dl (32-36)
[2016-09-25 10:38] LABS: C-REACTIVE PROTEIN 1.95 mg/dl (0-0.29)
[2016-09-25 15:49] VITALS: BP 133/79; PULSE 54; TEMP 37.2; O2SAT 98
[2016-09-25 16:10] VITALS: O2SAT 98
--- NOTE | 2016-09-25 16:38 | PROGRESS NOTE ---
DATE: 09/25/2016 The patient is tolerating clear liquids today with a little bit of mild right-sided abdominal discomfort. Objectively his vital signs are normal. He is afebrile. White count is 7.94, hemoglobin 14.8, platelets 207,000. C-reactive protein is 1.95, which is elevated. His lactic acid is 1, which is normal. X-ray report shows some inflammation, thickening and narrowing with some periluminal stranding in the mid right small bowel excluding the terminal ileum. IMPRESSION: The patient's symptoms are quite abrupt in onset, favoring more of an infection; however, the small bowel x-ray is distinctly abnormal. Concerned about the possibility of inflammatory bowel disease in addition to infection, especially given the elevated C-reactive protein. I plan on getting anti SC antibodies for possible Crohn's disease and ordering an MR enterography of the small intestine. He may be able to advance his diet to full liquids tomorrow. Dr. Bueno will be covering over the weekend.
[2016-09-26 00:04] VITALS: BP 153/78; PULSE 54; TEMP 37.2; O2SAT 97
[2016-09-26] MEDS: HEPARIN SOD 5000 UNIT/0.5 ML CARP SQ SCH ×3 (05:36→22:00)
[2016-09-26 06:25] LABS: BUN/CREATININE RATIO 12.1 (10-20); CALCIUM 9.1 mg/dl (8.5-10.1); CREATININE 0.82 mg/dl (0.60-1.40); MAGNESIUM 2.3 mg/dl (1.8-2.4)
[2016-09-26 06:30] LABS: PHOSPHORUS 3.4 mg/dl (2.5-4.9)
[2016-09-26 07:43] VITALS: BP 134/72; PULSE 52; TEMP 36.9; O2SAT 98
--- NOTE | 2016-09-26 08:49 | Progress Note ---
Subjective Date of Service: Sep 26, 2016. Subjective Pt evaluation today including: conversation w/ patient, physical exam, chart review, lab review, review of studies, conversation w/ merchandising consultant, review of inpatient medication list Sitting up, eating First, mild right side abdomen tender after eating, no nausea vomiting, has passing gas, has tiny bowel movement with no blood Problem List Medical Problems: (1) Enteritis Status: Acute (2) Intractable epigastric abdominal pain Status: Acute Review of Systems Constitutional: + fatigue, + weakness, No chills, No fever, No problem reported , No sweats, No weight loss Eyes: No diplopia, No discharge, No eye pain, No redness, No worsening of vision ENT: No dental problems, No hearing loss, No nasal symptoms, No sore throat, No tinnitus, No trouble swallowing, No unusual epistaxis Respiratory: No cough, No dyspnea at rest, No dyspnea on exertion, No hemoptysis, No shortness of breath, No sputum, No wheezing Cardiac: No PND, No chest pain, No claudication, No edema, No orthopnea, No palpitations Abdomen: + pain, No constipation, No diarrhea, No nausea, No vomiting Musculoskeletal: No calf pain, No joint pain, No muscle pain, No swelling Male : No dysuria, No hematuria, No incontinence, No nocturia more than once/ night, No slowing stream, No urinary frequency Neurologic: No balance problems, No memory loss, No numbness/tingling, No paralysis, No vertigo, No weakness Psychiatric: No anhedonism, No anxiety, No depression symptoms, No insomnia, No substance abuse Heme: No abnormal bleeding/bruising, No clotting problems, No night sweats, No swollen lymph nodes Endo: No excessive thirst, No excessive urination, No fatigue Skin: No bleeding, No color change, No itch, No new/changing skin lesions, No rash Objective Vital Signs Date Time Temp Pulse Resp B/P Pulse Ox O2 Delivery O2 Flow Rate FiO2 09/26/16 07:43 36.9 52 16 134/72 98 Room Air 09/26/16 00:04 37.2 54 18 153/78 97 Room Air 09/26/16 00:00 Room Air 09/25/16 16:10 98 Room Air 09/25/16 15:49 37.2 54 16 133/79 98 Room Air 09/25/16 10:43 Room Air Physical Exam General Appearance: WD/WN, no apparent distress, + obese Eyes: normal inspection, PERRL, EOMI, sclerae normal ENT: normal ENT inspection, hearing grossly normal, pharynx normal Neck: supple, no adenopathy, thyroid normal, no JVD, no carotid bruits, trachea midline Respiratory/Chest: chest non-tender, lungs clear, normal breath sounds, no respiratory distress, no accessory muscle use Cardiovascular: regular rate, rhythm, no edema, no gallop, no JVD, no murmur Abdomen: normal bowel sounds, soft, no organomegaly, no pulsatile mass, + tenderness (mild right side abdominal tender in palpation) Extremities: normal range of motion, non-tender, normal inspection, no pedal edema, no calf tenderness, normal capillary refill, pelvis stable Neurologic/Psychiatric: industrial ecologist II-XII nml as tested, no motor/sensory deficits, alert, normal mood/affect, oriented x 3 Skin: normal color, warm/dry, no rash Lymphatic: no adenopathy Laboratory Results Last 24 Hours Test 09/25/16 17:29 09/26/16 05:37 Sodium Level 143 mmol/L Potassium Level 4.0 mmol/L Chloride Level 106 mmol/L Carbon Dioxide Level 27 mmol/L Anion Gap 10.0 mmol/L Blood Urea Nitrogen 10 mg/dl Creatinine 0.82 mg/dl Est Creatinine Clear Calc Drug Dose 111.7 ml/min Estimated GFR () 119.5 Estimated GFR (Non- 103.1 BUN/Creatinine Ratio 12.1 Random Glucose 89 mg/dl Calcium Level 9.1 mg/dl Phosphorus Level 3.4 mg/dl Magnesium Level 2.3 mg/dl Assessment and Plan 51 y/o M who denies any significant medical Hx presents with moderate to severe R sided abdominal pain on 09/24/2015 enteritis with thick-walled and edematous small bowel in the right upper to mid abdomen. nonspecific enteritis, which could be on an infectious, inflammatory, or less likely an ischemic basis. GI input appreciated: patient denies use of NSAIDs. The source of the patient' s focal abnormality is unclear. Will minimize narcotics , may need to have MR enterography or small-bowel followthrough to ensure that there are no persistent changes in the mid small- bowel as described by CT imaging. Concerned about the possibility of inflammatory bowel disease in addition to infection, especially given the elevated C-reactive protein, GI ordered: anti SC antibodies for possible Crohn's disease and ordering an MR enterography of the small intestine, report is pending 1.2 cm enhancing lesion the left hepatic lobe in Ct but in [place] reported a 7 mm left lobe hepatic cys I told him to follow up with pcp or GI Plan: advance his diet to full liquids, follow-up GI input Increase activity Discharge plan will be per GI recommendation Full code, Heparin prophylaxis d/w pt and rn Continued [facility] stay due to: multiple IV medications needed Discharge planning: home
[2016-09-26] MEDS: PANTOprazole SOD 40 MG TAB PO SCH (14:35)
[2016-09-26 15:53] VITALS: BP 120/74; PULSE 52; TEMP 36.7; O2SAT 99
[2016-09-26 16:30] VITALS: O2SAT 99
--- NOTE | 2016-09-26 17:08 | Gastroenterology Progress Note ---
Progress Note Date of Service: Sep 26, 2016 Subjective Pt evaluation today including: conversation w/ patient, conversation w/ family (girlfriend), physical exam, chart review, lab review, review of studies, review of inpatient medication list CC f/u abd pain HPI Pt states abd pain improved. Can tell when eats something going through intestinal tract. State clear liquids so far but full liquids ordered next meal. States having some loose stools. Review of Systems Respiratory: No shortness of breath Cardiac: No chest pain Medications Current Inpatient Medications Medications (Trade) Dose Ordered Sig/Pamela Route Start Time Stop Time Status Last Admin Dose Admin Ioversol (Optiray 320) 100 ml UD PRN IV 09/24/16 03:15 09/28/16 03:14 Heparin Sodium (Porcine) (Heparin Sq 5000 Unit/0.5ml) 5,000 unit Q8 SQ 09/24/16 07:30 10/24/16 07:29 09/25/16 06:14 5,000 UNIT Ondansetron HCl (Zofran Inj) 4 mg Q6H PRN IV 09/24/16 06:30 10/24/16 06:29 Miscellaneous (Iv Fluids Completed) 1 ea PRN PRN N/A 09/24/16 06:30 09/24/17 06:29 Pantoprazole Sodium (Protonix Tab) 40 mg QAM PO 09/27/16 08:00 10/27/16 07:59 09/26/16 14:35 40 MG Objective Vital Signs Date Time Temp Pulse Resp B/P Pulse Ox O2 Delivery O2 Flow Rate FiO2 09/26/16 15:53 36.7 52 18 120/74 99 Room Air 09/26/16 10:00 Room Air 09/26/16 07:43 36.9 52 16 134/72 98 Room Air 09/26/16 00:04 37.2 54 18 153/78 97 Room Air 09/26/16 00:00 Room Air Physical Exam General Appearance: WD/WN, no apparent distress Respiratory/Chest: lungs clear, normal breath sounds Cardiovascular: regular rate, rhythm Abdomen: normal bowel sounds, non tender, soft, no organomegaly Laboratory Results Last 24 Hours Test 09/25/16 17:29 09/26/16 05:37 Sodium Level 143 mmol/L Potassium Level 4.0 mmol/L Chloride Level 106 mmol/L Carbon Dioxide Level 27 mmol/L Anion Gap 10.0 mmol/L Blood Urea Nitrogen 10 mg/dl Creatinine 0.82 mg/dl Est Creatinine Clear Calc Drug Dose 111.7 ml/min Estimated GFR () 119.5 Estimated GFR (Non- 103.1 BUN/Creatinine Ratio 12.1 Random Glucose 89 mg/dl Calcium Level 9.1 mg/dl Phosphorus Level 3.4 mg/dl Magnesium Level 2.3 mg/dl Assessment and Plan abnl SB on CT scan--anti SC antibodies and MR enterography ordered-- differential infection, crohns (less likely given abrupt onset), ischemia but not severely ill and nl lactic acid and WBC makes less likely abd pain--related to above improved diarrhea--not at home but having it now. Check stool studies
[2016-09-27 00:02] VITALS: BP 142/81; PULSE 51; TEMP 36.9; O2SAT 97
[2016-09-27] MEDS: HEPARIN SOD 5000 UNIT/0.5 ML CARP SQ SCH ×3 (05:43→20:10)
[2016-09-27 06:17] LABS: HEMATOCRIT 42.1 % (42-52); MEAN CORPUSCULAR HEMOGLOBIN 32.6 pg (25-34); MEAN CORPUSCULAR HGB CONC 36.6 g/dl (32-36); PLATELET COUNT 219 K/uL (130-400); RED BLOOD COUNT 4.73 M/uL (4.7-6.1); WHITE BLOOD COUNT 7.05 K/uL (4.8-10.8)
[2016-09-27 06:50] LABS: CALCIUM 8.7 mg/dl (8.5-10.1); CREATININE 0.86 mg/dl (0.60-1.40); POTASSIUM 3.8 mmol/L (3.5-5.1)
[2016-09-27 07:11] VITALS: BP 125/78; PULSE 49; TEMP 36.7; O2SAT 98
[2016-09-27 08:00] VITALS: O2SAT 98
[2016-09-27] MEDS: PANTOprazole SOD 40 MG TAB PO SCH (08:16)
[2016-09-27] MEDS ORDERED: LOPERAMIDE HCL 2 MG CAP PO PRN (10:00)
--- NOTE | 2016-09-27 10:02 | Progress Note ---
Subjective Date of Service: Sep 27, 2016. Subjective Pt evaluation today including: conversation w/ patient, physical exam, chart review, lab review, review of studies, conversation w/ property consultant, review of inpatient medication list Voiding: no voiding problems had several times diarrhea yesterday which was watery, still has abdominal uncomfortable and pain after eating, however his rate in the uncomfortable was around 1 out of 10, No nausea vomiting, no fever and chill Problem List Medical Problems: (1) Enteritis Status: Acute (2) Intractable epigastric abdominal pain Status: Acute Review of Systems Constitutional: + fatigue, + weakness, No chills, No fever, No problem reported , No sweats, No weight loss Eyes: No diplopia, No discharge, No eye pain, No redness, No worsening of vision ENT: No dental problems, No hearing loss, No nasal symptoms, No sore throat, No tinnitus, No trouble swallowing, No unusual epistaxis Respiratory: No cough, No dyspnea at rest, No dyspnea on exertion, No hemoptysis, No shortness of breath, No sputum, No wheezing Cardiac: No PND, No chest pain, No claudication, No edema, No orthopnea, No palpitations Abdomen: + pain, No constipation, No diarrhea, No nausea, No vomiting Musculoskeletal: No calf pain, No joint pain, No muscle pain, No swelling Male : No dysuria, No hematuria, No incontinence, No nocturia more than once/ night, No slowing stream, No urinary frequency Neurologic: No balance problems, No memory loss, No numbness/tingling, No paralysis, No vertigo, No weakness Psychiatric: No anhedonism, No anxiety, No depression symptoms, No insomnia, No substance abuse Heme: No abnormal bleeding/bruising, No clotting problems, No night sweats, No swollen lymph nodes Endo: No excessive thirst, No excessive urination, No fatigue Skin: No bleeding, No color change, No itch, No new/changing skin lesions, No rash Objective Vital Signs Date Time Temp Pulse Resp B/P Pulse Ox O2 Delivery O2 Flow Rate FiO2 09/27/16 08:00 98 Room Air 09/27/16 07:11 36.7 49 18 125/78 98 Room Air 09/27/16 00:02 36.9 51 20 142/81 97 Room Air 09/27/16 00:00 Room Air 09/26/16 16:30 99 Room Air 09/26/16 15:53 36.7 52 18 120/74 99 Room Air 09/26/16 10:00 Room Air Physical Exam General Appearance: WD/WN, no apparent distress Eyes: normal inspection, PERRL, EOMI, sclerae normal ENT: normal ENT inspection, hearing grossly normal, pharynx normal Neck: supple, no adenopathy, thyroid normal, no JVD, no carotid bruits, trachea midline Respiratory/Chest: chest non-tender, lungs clear, normal breath sounds, no respiratory distress, no accessory muscle use Cardiovascular: regular rate, rhythm, no edema, no gallop, no JVD, no murmur Abdomen: normal bowel sounds, soft, no organomegaly, no pulsatile mass, + tenderness (deep tender) Extremities: normal range of motion, non-tender, normal inspection, no pedal edema, no calf tenderness, normal capillary refill, pelvis stable Neurologic/Psychiatric: porcelain enameler II-XII nml as tested, no motor/sensory deficits, alert, normal mood/affect, oriented x 3 Skin: normal color, warm/dry, no rash Lymphatic: no adenopathy Laboratory Results Last 24 Hours Test 09/27/16 01:00 09/27/16 05:22 White Blood Count 7.05 K/uL Red Blood Count 4.73 M/uL Hemoglobin 15.4 g/dL Hematocrit 42.1 % Mean Corpuscular Volume 89.0 fL Mean Corpuscular Hemoglobin 32.6 pg Mean Corpuscular Hemoglobin Concent 36.6 g/dl RDW Standard Deviation 39.3 fL RDW Coefficient of Variation 12.2 % Platelet Count 219 K/uL Mean Platelet Volume 10.0 fL Sodium Level 141 mmol/L Potassium Level 3.8 mmol/L Chloride Level 105 mmol/L Carbon Dioxide Level 26 mmol/L Anion Gap 10.0 mmol/L Blood Urea Nitrogen 10 mg/dl Creatinine 0.86 mg/dl Est Creatinine Clear Calc Drug Dose 106.5 ml/min Estimated GFR () 117.2 Estimated GFR (Non- 101.1 BUN/Creatinine Ratio 11.0 Random Glucose 86 mg/dl Calcium Level 8.7 mg/dl Total Bilirubin 0.7 mg/dl Aspartate Amino Transf (AST/SGOT) 15 U/L Alanine Aminotransferase (ALT/SGPT) 19 U/L Alkaline Phosphatase 81 U/L Total Protein 6.8 gm/dl Albumin 3.4 gm/dl Globulin 3.4 gm/dl Albumin/Globulin Ratio 1.0 Assessment and Plan 51 y/o M who denies any significant medical Hx presents with moderate to severe R sided abdominal pain on 09/24/2015, stable and slowly improving enteritis with thick-walled and edematous small bowel in the right upper to mid abdomen. nonspecific enteritis, which could be on an infectious, inflammatory, or less likely an ischemic basis. GI input appreciated: patient denies use of NSAIDs. The source of the patient' s focal abnormality is unclear. Has discontinued narcotics , Concerned about the possibility of inflammatory bowel disease in addition to infection, especially given the elevated C- reactive protein, GI ordered: anti SC antibodies for possible Crohn's disease and ordering an MR enterography of the small intestine, report is pending 1.2 cm enhancing lesion the left hepatic lobe in Ct but in US reported a 7 mm left lobe hepatic cys I told him to follow up with pcp or GI New onset of diarrhea, C. difficile is negative, patient did report drinking well water time 2 days prior to the admission, will follow-up stool studies Plan: advance his diet follow-up GI input Increase activity Can discharged to home if GI agrees and have follow-up plan with GI Full code, Heparin prophylaxis d/w pt and rn Continued [facility] stay due to: multiple IV medications needed Discharge planning: home
[2016-09-27 15:34] VITALS: BP 115/75; PULSE 84; TEMP 36.6; O2SAT 94
--- NOTE | 2016-09-27 15:37 | Gastroenterology Progress Note ---
Progress Note Date of Service: Sep 27, 2016 Subjective Pt evaluation today including: conversation w/ patient, conversation w/ family (girlfriend in room), physical exam, chart review, lab review, review of studies , review of inpatient medication list cc f/u abd pain HPI States abd pain improved. Still with diarrhea and stools have been collected per patient report. Tolerating solid diet. Review of Systems Respiratory: No shortness of breath Cardiac: No chest pain Medications Current Inpatient Medications Medications (Trade) Dose Ordered Sig/Pamela Route Start Time Stop Time Status Last Admin Dose Admin Ioversol (Optiray 320) 100 ml UD PRN IV 09/24/16 03:15 09/28/16 03:14 Heparin Sodium (Porcine) (Heparin Sq 5000 Unit/0.5ml) 5,000 unit Q8 SQ 09/24/16 07:30 10/24/16 07:29 09/25/16 06:14 5,000 UNIT Ondansetron HCl (Zofran Inj) 4 mg Q6H PRN IV 09/24/16 06:30 10/24/16 06:29 Miscellaneous (Iv Fluids Completed) 1 ea PRN PRN N/A 09/24/16 06:30 09/24/17 06:29 Pantoprazole Sodium (Protonix Tab) 40 mg QAM PO 09/27/16 08:00 10/27/16 07:59 09/27/16 08:16 40 MG Loperamide HCl (Imodium Cap) 2 mg Q8 PRN PO 09/27/16 10:00 10/27/16 09:59 Objective Vital Signs Date Time Temp Pulse Resp B/P Pulse Ox O2 Delivery O2 Flow Rate FiO2 09/27/16 08:00 98 Room Air 09/27/16 07:11 36.7 49 18 125/78 98 Room Air 09/27/16 00:02 36.9 51 20 142/81 97 Room Air 09/27/16 00:00 Room Air 09/26/16 16:30 99 Room Air 09/26/16 15:53 36.7 52 18 120/74 99 Room Air Physical Exam General Appearance: WD/WN, no apparent distress Respiratory/Chest: lungs clear, no respiratory distress Cardiovascular: regular rate, rhythm Abdomen: normal bowel sounds, non tender, soft, no organomegaly Laboratory Results Last 24 Hours Test 09/27/16 01:00 09/27/16 05:22 White Blood Count 7.05 K/uL Red Blood Count 4.73 M/uL Hemoglobin 15.4 g/dL Hematocrit 42.1 % Mean Corpuscular Volume 89.0 fL Mean Corpuscular Hemoglobin 32.6 pg Mean Corpuscular Hemoglobin Concent 36.6 g/dl RDW Standard Deviation 39.3 fL RDW Coefficient of Variation 12.2 % Platelet Count 219 K/uL Mean Platelet Volume 10.0 fL Sodium Level 141 mmol/L Potassium Level 3.8 mmol/L Chloride Level 105 mmol/L Carbon Dioxide Level 26 mmol/L Anion Gap 10.0 mmol/L Blood Urea Nitrogen 10 mg/dl Creatinine 0.86 mg/dl Est Creatinine Clear Calc Drug Dose 106.5 ml/min Estimated GFR () 117.2 Estimated GFR (Non- 101.1 BUN/Creatinine Ratio 11.0 Random Glucose 86 mg/dl Calcium Level 8.7 mg/dl Total Bilirubin 0.7 mg/dl Aspartate Amino Transf (AST/SGOT) 15 U/L Alanine Aminotransferase (ALT/SGPT) 19 U/L Alkaline Phosphatase 81 U/L Total Protein 6.8 gm/dl Albumin 3.4 gm/dl Globulin 3.4 gm/dl Albumin/Globulin Ratio 1.0 Assessment and Plan abnl SB on CT scan--anti SC antibodies and MR enterography ordered-- differential infection, crohns (less likely given abrupt onset), ischemia but not severely ill and nl lactic acid and WBC makes less likely. Will make NPO for MR enterography tomorrow. Presumably can go home after MR enterography results back tomorrow. abd pain--related to above improved--- diarrhea--not at home but having it now. Stool studies pending
[2016-09-28 00:08] VITALS: BP 143/88; PULSE 48; TEMP 36.4; O2SAT 97
[2016-09-28 00:30] VITALS: PULSE 63
[2016-09-28] MEDS: HEPARIN SOD 5000 UNIT/0.5 ML CARP SQ SCH ×3 (05:15→20:00)
[2016-09-28 06:45] LABS: CALCIUM 8.7 mg/dl (8.5-10.1); CREATININE 0.95 mg/dl (0.60-1.40); POTASSIUM 3.9 mmol/L (3.5-5.1)
[2016-09-28 06:46] LABS: MAGNESIUM 2.2 mg/dl (1.8-2.4)
[2016-09-28 07:58] VITALS: BP 129/80; PULSE 53; TEMP 36.5; O2SAT 97
[2016-09-28] MEDS: PANTOprazole SOD 40 MG TAB PO SCH (08:59)
[2016-09-28] MEDS ORDERED: GLUCAGON FOR INJ 1 MG VIAL ONE (11:10)
[2016-09-28] MEDS ORDERED: NURSING VERBAL MED ORDER ONE (11:15)
--- NOTE | 2016-09-28 13:32 | DIAGNOSTIC IMAGING REPORT ---
MR ENTEROGRAPHY ABD/PELVIS COMBO HISTORY: small bowel inflammation TECHNIQUE: Multiplanar multisequence MR enterography the abdomen and pelvis was performed both before and after the intravenous ministration of contrast. Dynamic sequences of the bowel also obtained. COMPARISON STUDY: Chest abdomen and pelvis CTA 09/24/2016. FINDINGS: There is again noted a 1.1 cm slightly T2 hyperintense lesion within the left hepatic lobe. This is difficult to characterize due to its small size but likely demonstrates discontinuous peripheral nodular enhancement with delayed filling. Therefore, this favors a hemangioma. There are few subcentimeter cysts within the liver. The kidneys, spleen, pancreas, gallbladder, and adrenal glands are unremarkable. No retroperitoneal lymphadenopathy. There is mild dilatation involving a long segment of small bowel in the right side the abdomen. However, the adjacent fat stranding and fluid has diminished. The small bowel measures up to 3.6 cm in diameter. The distended small bowel is fluid-filled. Best seen on the coronal postcontrast sequences there appears to be mild twisting of the mesentery within the right lower quadrant. There is both proximal and distal decompressed small bowel surrounding the dilated loop within the right lower quadrant. Therefore, this is concerning for a closed loop obstruction. IMPRESSION: 1. Dilated loop of small bowel within the right lower quadrant. The dilatation has slightly progressed. However, the adjacent inflammatory change/fluid has improved. There appears to be both proximal and distal decompressed loops of bowel with possible twisting of the mesentery within the right lower quadrant. Therefore, this is consistent with a closed loop obstruction secondary to an internal hernia. 2. A 1.1 cm hepatic hemangioma. 3.. A few small hepatic cysts. 4. These findings were discussed with Dr. Mcclelland at 1:28 PM on 09/28/2016. Electronically signed by: Kane Alvarenga M.D. 09/28/2016 1:30 PM Dictated Date/Time: 09/28/2016 1:06 PM
--- NOTE | 2016-09-28 14:02 | PROGRESS NOTE ---
DATE: 09/28/2016 His abdomen is feeling somewhat better today. His vital signs are normal. He is afebrile. His white count is normal. His MR enterography today however shows what appears to be a trapped loop of small bowel in the right mid abdomen, either from twisted mesentery or a closed loop obstruction. I spoke to the patient and I feel that the best approach for this would be surgical. IMPRESSION: Partial small bowel obstruction from either closed loop or twisted mesentery. I will consult surgery for their opinion.
--- NOTE | 2016-09-28 14:23 | Progress Note ---
Subjective Date of Service: Sep 28, 2016. Subjective Pt evaluation today including: conversation w/ patient, physical exam, chart review, lab review, review of studies, review of inpatient medication list Pt sitting up in bed No abd discomfort No chest pain, sob, F/C/N/V/D Problem List Medical Problems: (1) Enteritis Status: Acute (2) Intractable epigastric abdominal pain Status: Acute Review of Systems Constitutional: No chills, No fever Respiratory: No cough, No dyspnea on exertion, No shortness of breath, No sputum, No wheezing Cardiac: No chest pain, No orthopnea Abdomen: No constipation, No diarrhea, No nausea, No pain, No vomiting Musculoskeletal: No joint pain, No muscle pain Male : No dysuria, No urinary frequency Objective Vital Signs Date Time Temp Pulse Resp B/P Pulse Ox O2 Delivery O2 Flow Rate FiO2 09/28/16 09:00 Room Air 09/28/16 07:58 36.5 53 20 129/80 97 Room Air 09/28/16 00:30 63 09/28/16 00:08 36.4 48 18 143/88 97 Room Air 09/28/16 00:00 Room Air 09/27/16 20:00 Room Air 09/27/16 16:21 Room Air 09/27/16 15:34 36.6 84 18 115/75 94 Room Air Physical Exam General Appearance: WD/WN, no apparent distress Neck: supple, no adenopathy Respiratory/Chest: lungs clear, normal breath sounds Cardiovascular: regular rate, rhythm, no edema, no gallop Abdomen: non tender, soft Neurologic/Psychiatric: alert, oriented x 3 Laboratory Results Last 24 Hours Test 09/28/16 05:40 Sodium Level 142 mmol/L Potassium Level 3.9 mmol/L Chloride Level 104 mmol/L Carbon Dioxide Level 28 mmol/L Anion Gap 10.0 mmol/L Blood Urea Nitrogen 11 mg/dl Creatinine 0.95 mg/dl Est Creatinine Clear Calc Drug Dose 96.4 ml/min Estimated GFR () 107.7 Estimated GFR (Non- 93.0 BUN/Creatinine Ratio 12.0 Random Glucose 93 mg/dl Calcium Level 8.7 mg/dl Magnesium Level 2.2 mg/dl Assessment and Plan 51 y/o M who denies any significant medical Hx presents with moderate to severe R sided abdominal pain on 09/24/2015, stable and slowly improving Nonspecific enteritis with thick-walled and edematous small bowel in the right upper to mid abdomen. Etiology could be on an infectious, inflammatory, or less likely an ischemic basis. MR enterography completed on 09/28 - determined closed loop obstruction - general surgery consulted. GI input appreciated: patient denies use of NSAIDs. The source of the patient's focal abnormality is unclear. Pt has discontinued narcotics, concerned about the possibility of inflammatory bowel disease in addition to infection, especially given the elevated C-reactive protein, GI ordered: anti-SC antibodies for possible Crohn's disease and ordering an MR enterography of the small intestine, report is pending 1.2 cm enhancing lesion the left hepatic lobe in Ct but in US reported a 7 mm left lobe hepatic cys I told him to follow up with pcp or GI New onset of diarrhea, C. difficile is negative, patient did report drinking well water time 2 days prior to the admission, follow-up stool studies negative Continued [facility] stay due to: multiple IV medications needed Discharge planning: home
[2016-09-28] MEDS ORDERED: MAGNESIUM CITRATE 296 ML/BTL PO ONE (14:45)
[2016-09-28 15:12] VITALS: BP 139/74; PULSE 68; TEMP 37; O2SAT 96
--- NOTE | 2016-09-28 16:32 | CONSULTATION REPORT ---
DATE OF CONSULTATION: 09/28/2016 Seen in consultation 09/28/2016 at 2:20 in the afternoon. HISTORY OF PRESENT ILLNESS: I was called by Dr. Mcclelland approximately 20 minutes ago for Mr. Garry Pillai for what appeared to be possible internal hernia. This gentleman, last Wednesday night after eating some various small hamburger followed by significant amount of water, developed excruciating pain, acute onset on the right side of the abdomen. Since that time, he has noticed fullness there whenever he would move around. He was evaluated with CAT scan. Initially, they thought he may have a dissection, but further evaluation including a CT angiogram followed by an MRI today, it looks like he has probably a pulling of the mesentery with some inflammatory changes in the mesentery in the right abdomen, not involving his terminal ileum. He was seen by GI since he has been in and their further recommendations today including an MRI, which delineated the problem more acutely. Since he has been here, the patient has had no real issues. The pain is sort of subsided. He never had any vomiting. He was slightly distended, but not nauseated. He has been taking a regular diet. In fact, he ate last night, but noticed whenever he was waking along the hallway after a while, he felt some fullness, but no nausea or vomiting. He has been moving his bowels. PAST MEDICAL HISTORY: Pretty much unremarkable. The only surgery he had was an umbilical hernia. I am not sure whether or not he may have had mesh inserted there. Other than that, he enjoys good activity. He works at [employer] in maintenance. ALLERGIES: He has no known allergies. MEDICATIONS: The only things at home, he takes a vitamin C. PHYSICAL EXAMINATION: GENERAL: At this present time shows that Garry is sitting at the side of bed in a chair, fully dressed, in no acute distress. He states that he feels fine. He has no pain other than what is stated sometimes when he moves he feels some fullness in the right side. He is healthy appearing and slightly hard of hearing. HEAD: Normocephalic. EYES: Sclerae nonicteric. NECK: No cervical lymphadenopathy. HEART AND LUNGS: Clear. ABDOMEN: Soft. It is not distended. He did get a feelings fullness in the right side of the abdomen, but certainly no obstructive and no tenderness. Some guarding on deep palpation. The rest of the abdomen was negative. Periumbilical incision looks fine. EXTREMITIES: Grossly normal. LABORATORY DATA: He has never had a white count. In fact yesterday, his hemoglobin was 15.4 and WBC 7.05. His chemistries are all within normal limits. Radiographically, tests were reviewed suspicious for possibility of an internal hernia. I reviewed the x-rays and the MRI and the CT angiogram with the radiologist and there is no evidence of any intussusception. Actually, the bowel may be a little bit more proximally dilated, but there is no evidence of any obstruction. Some of the mesenteric fatty tissue has actually subsided as far as inflammation. ASSESSMENT AND PLAN: Initially, I thought about taking the patient to surgery now since he does need an exploration for most likely an internal hernia that may have a defect underneath the mesentery of the right colon, but since completely benign at this time and it is 2:00 in the afternoon, rather than doing late in the evening, we will plan to do him tomorrow. We will do an exploratory laparotomy with possible bowel resection. Risks and complications were explained to the patient includes of bleeding and infection and he would like to proceed accordingly. I will give him a little bit of mag citrate today 1 bottle and change his heparin to q. 12 hours rather than q. 8 hours. The risk and complications of surgery were explained to the patient. The patient will be given a diet tonight since he has been n.p.o. after midnight and we will keep him n.p.o. after midnight for surgery tomorrow. EVA
--- NOTE | 2016-09-28 17:09 | Anesthesiology Progress Note ---
Anesthesia Progress Note Date of Service Sep 28, 2016. Progress Notes The patient is a 51 y/o male with no significant PMH who was found to have small bowel obstruction and enteritis on admission scheduled for Exploratory Laparotomy with Dr. Coffey tomorrow. The patient does not take any medications at home. He reports no problems with anesthesia in the past. He does report getting nauseated with Dilaudid on admission. The patient' s EKG showed SB with HR 55. His CXR showed NAD and his labs are unremarkable. He is able to go up two flights of stairs without chest pain or shortness of breath. On exam, the patient appears well in no acute distress. His heart was RRR and lungs were clear to auscultation bilaterally. He had a Mallampati I airway with intact teeth. The patient appears optimized for surgery tomorrow. He was consented for General Anesthesia. All questions were answered. He was instructed to remain NPO after midnight except for medications with a sip of water.
[2016-09-28 23:45] VITALS: BP 142/91; PULSE 71; TEMP 36.7; O2SAT 93
[2016-09-29] VITALS (9 sets, daily range): BP systolic 113–151; BP diastolic 68–92; PULSE 59–87; TEMP 36.3–37; O2SAT 95–98
[2016-09-29] MEDS: HEPARIN SOD 5000 UNIT/0.5 ML CARP SQ SCH ×3 (08:00→20:36)
[2016-09-29] MEDS: PANTOprazole SOD 40 MG TAB PO SCH (08:10)
[2016-09-29 09:28] LABS: BASO % 0.6 %; BASO ABS # 0.04 K/uL (0-0.2); COMPLETE YES; EOS % 4.5 %; HEMATOCRIT 43.9 % (42-52); IG% 0.2 %; LYMPH % 18.9 %; LYMPH ABS # 1.26 K/uL (1.2-3.4); MEAN CELL VOLUME 90.3 fL (80-100); MEAN CORPUSCULAR HEMOGLOBIN 33.7 pg (25-34); MEAN CORPUSCULAR HGB CONC 37.4 g/dl (32-36); MEAN PLATELET VOLUME 9.7 fL (7.4-10.4); MONO % 8.6 %; NEUT % 67.2 %; PLATELET COUNT 242 K/uL (130-400); RED BLOOD COUNT 4.86 M/uL (4.7-6.1); WHITE BLOOD COUNT 6.65 K/uL (4.8-10.8)
[2016-09-29] MEDS ORDERED: FENTANYL CITRATE INJ 50 MCG/1 ML 2 ML VIAL ONE ×3 (09:30→11:39)
--- NOTE | 2016-09-29 10:05 | History & Physical Bridge Note ---
H&P Re-Evaluation Bridge Note: I have examined the patient, reviewed the History & Physical and in the interval since the performance of the History & Physical I have noted the following changes of clinical significance: No changes noted for OR vitals noted
[2016-09-29] MEDS ORDERED: MoRPHine SULFATE 2 MG/ML CARP ONE (10:49)
[2016-09-29] MEDS ORDERED: ROCURONIUM BROMIDE 10 MG/ML 5 ML VIAL ONE (10:52)
[2016-09-29] MEDS ORDERED: GLYCOPYRROLATE INJ 0.2 MG/ML VIAL ONE (10:52)
[2016-09-29] MEDS ORDERED: NEOSTIGMINE METHYLSULFATE 5 MG/5 ML SYR ONE (10:52)
[2016-09-29] MEDS ORDERED: PROPOFOL IV EMULSION 10 MG/ML 20 ML VIAL IV ONE (10:52)
[2016-09-29] MEDS ORDERED: ONDANSETRON INJ 2 MG/ML 2 ML VIAL ONE (10:52)
[2016-09-29] MEDS ORDERED: SUCCINYLCHOLINE CHLORIDE 20 MG/ML 10 ML VIAL IV ONE (10:52)
[2016-09-29] MEDS ORDERED: CEFOXITIN SOD 1 GM VIAL ONE (10:52)
[2016-09-29] MEDS ORDERED: KETOROLAC TROMETHAMINE 30 MG/ML VIAL ONE (10:52)
[2016-09-29] MEDS ORDERED: LIDOCAINE HCL 1% MPF 5 ML VIAL IV ONE (11:11)
[2016-09-29] MEDS: SODIUM CHLORIDE 0.9% 1000ML 1,000 ML IV SCH (11:17)
--- NOTE | 2016-09-29 11:18 | [facility] Post Operative Brief Note ---
Immediate Operative Summary Operative Date Sep 29, 2016. Pre-Operative Diagnosis Internal Mesenteric Hernia Post-Operative Diagnosis Same Procedure(s) Performed Exploratory Laparotomy, Reduction of internal hernia, Incidental appendectomy, Meckels diverticulectomy Surgeon Dr Coffey Door Clamper Surgeon(s) Rober Hoang PA-C Estimated Blood Loss 5ml Findings defect in omentum with loop of small bowel meckels Specimens A. appendix B. meckels diverticulum
[2016-09-29] MEDS ORDERED: NALOXONE HCL 0.4 MG/1 ML VIAL/CARP IV PRN (11:30)
[2016-09-29] MEDS ORDERED: MoRPHine SULFATE 1 MG/ML 50 ML PCA CASS ONE (11:30)
[2016-09-29] MEDS ORDERED: ATROPINE SULFATE 0.1 MG/ML 5ML SYR IV PRN (11:30)
[2016-09-29] MEDS ORDERED: FENTANYL CITRATE INJ 50 MCG/1 ML 2 ML VIAL IV PRN (11:30)
[2016-09-29] MEDS ORDERED: PROMETHAZINE HCL INJ 6.25 MG in SODIUM CHLORIDE 0.9% 50ML 50 ML IV PRN (11:30)
[2016-09-29] MEDS ORDERED: EpHEDrine SULFATE INJ 50 MG/ML AMP IV PRN (11:30)
[2016-09-29] MEDS ORDERED: HYDROmorphone INJ 1 MG/ML SYR IV PRN (11:30)
[2016-09-29] MEDS ORDERED: ONDANSETRON INJ 2 MG/ML 2 ML VIAL IV PRN (11:30)
[2016-09-29] MEDS: MoRPHine SULFATE 1 MG/ML 50 ML PCA CASS IV PRN ×4 (11:37→23:03)
--- NOTE | 2016-09-29 12:24 | OPERATIVE REPORT ---
DATE OF OPERATION: 09/29/2016 PREOPERATIVE DIAGNOSIS: Small-bowel obstruction, possible internal hernia. POSTOPERATIVE DIAGNOSIS: Internal hernia in a defect of the omentum mid jejunum. PROCEDURE: Exploratory lap, reduction of the internal hernia, closure of the omental defects, incidental appendectomy and incidental Meckel's diverticulectomy. SURGEON: Dr. Coffey. RN NURSERY: Donovan Hoang PA-C. OPERATION AND FINDINGS: SUMMARY: The patient was brought into the operating room theater. The abdomen was prepped with Betadine solution and properly draped. We made an incision to the right of the umbilicus and superiorly towards the epigastric area, approximately 4 inches long, deepened through subcutaneous tissue. We entered the abdomen. We were met with some preperitoneal fat in the incision which we ligated. At this point, once we entered the abdomen, we were then able to see the small bowel that was grossly normal. We placed a retractor elevating abdominal wall to the right and then we maneuvered through, went distally into the small bowel from the proximal area and as we got into the mid jejunal area the caliber of this bowel appeared to be larger than normal and we followed this down and actually we could actually deliver out of what is a hole into the omentum. It looked like the omentum itself in some area may have been slightly infarcted but this certainly could have been just due to the pressure of the bowel in that area. The defect where the hernia came through was approximately 6 cm, 5 cm opening. At this point, we then divided the lip of tissue that was beyond the opening and ligated with 2-0 silk, avoiding any further openings. There were a few other isolated areas but these were much smaller and we made sure that there were no other defects to the omentum. At this point, we then continued distally in the small bowel and identified what appears to be a Meckel's diverticulum in its proper position. The terminal ileum was adherent down into the gutter. We freed that up and also delivered the cecum and the appendix, then we made sure that we were able to see and feel the whole mesentery to the right colon from the transverse colon all the way down to the appendix area. There was no defect in the mesentery there. Therefore, the isolated opening was just in the omentum. I elected to proceed and do an incidental appendectomy dividing the mesoappendix ligating with 2-0 silk and suture ligature of 2-0 silk. Then the appendix was resected approximately 1 cm from its base, ligated with 2-0 silk suture and then the mucosa was bovied and this was inverted with 3-0 silk suture. The Meckel diverticulum was elevated up, we put stay sutures transversely to elevate it up with hemostats and then used fired a HERNAN stapler transversely making sure not to close the lumen. We then inverted the staple line with 3-0 silk suture. We checked for patency and appeared satisfactory. We further checked the mesentery of the small bowel, there was a very small opening about 1 cm or so. They were closed with interrupted 3-0 silk suture. We checked the whole small bowel, returned normal anatomical position and then closed the wound with #1 PDS [id number] interrupted, subcutaneous tissue 2-0 Vicryl and magan for skin edges. Dressing was applied. The procedure was tolerated well by the patient. Estimated blood loss approximately 10 mL. The patient was taken to recovery room in good condition. I attest to the content of the Intraoperative Record and any orders documented therein. Any exceptio ns are noted below.
--- NOTE | 2016-09-29 13:34 | Anesthesiology Progress Note ---
Anesthesia Post Op Note Date & Time Sep 29, 2016 at 13:33 Vital Signs Pain Intensity: 4.0 Vital Signs Past 12 Hours Date Time Temp Pulse Resp B/P Pulse Ox O2 Delivery O2 Flow Rate FiO2 09/29/16 13:20 71 16 122/81 95 Nasal Cannula 2.0 09/29/16 12:56 Nasal Cannula 2.0 09/29/16 12:50 37.0 73 18 123/75 95 Nasal Cannula 2.0 09/29/16 12:30 36.8 84 20 120/78 96 Nasal Cannula 2 09/29/16 12:20 62 15 108/73 98 Nasal Cannula 2 09/29/16 12:10 56 15 119/74 96 Nasal Cannula 2 09/29/16 12:00 75 19 127/76 95 Nasal Cannula 2 09/29/16 11:50 64 18 135/86 97 Nasal Cannula 2 09/29/16 11:40 63 18 141/87 97 Nasal Cannula 4 09/29/16 11:30 61 15 144/103 98 Nasal Cannula 4 09/29/16 11:20 36.5 61 16 149/95 98 Nasal Cannula 4 09/29/16 08:17 36.7 60 18 151/92 96 Room Air 09/29/16 08:00 Room Air Notes Mental Status: alert / awake / arousable, participated in evaluation Pt Amnestic to Procedure: Yes Nausea / Vomiting: adequately controlled Pain: adequately controlled Airway Patency, RR, SpO2: stable & adequate BP & HR: stable & adequate Hydration State: stable & adequate Anesthetic Complications: no major complications apparent
[2016-09-29] MEDS: D5W AND 1/2NSS + 20MEQ KCL 1,000 ML IV SCH ×2 (14:46→23:23)
--- NOTE | 2016-09-29 15:12 | Progress Note ---
Subjective Date of Service: Sep 29, 2016. Subjective Pt evaluation today including: conversation w/ patient, physical exam, chart review, lab review, review of studies, review of inpatient medication list Problem List Medical Problems: (1) Enteritis Status: Acute (2) Intractable epigastric abdominal pain Status: Acute Review of Systems Constitutional: No chills, No fever Respiratory: No cough, No dyspnea on exertion, No shortness of breath, No sputum, No wheezing Cardiac: No chest pain, No orthopnea Abdomen: + pain, No diarrhea, No nausea, No vomiting Musculoskeletal: No joint pain, No muscle pain Male : No dysuria, No urinary frequency Objective Vital Signs Date Time Temp Pulse Resp B/P Pulse Ox O2 Delivery O2 Flow Rate FiO2 09/29/16 14:50 36.3 87 16 114/73 98 Room Air 09/29/16 13:50 75 14 118/75 95 Nasal Cannula 2.0 09/29/16 13:20 71 16 122/81 95 Nasal Cannula 2.0 09/29/16 12:56 Nasal Cannula 2.0 09/29/16 12:50 37.0 73 18 123/75 95 Nasal Cannula 2.0 09/29/16 12:30 36.8 84 20 120/78 96 Nasal Cannula 2 09/29/16 12:20 62 15 108/73 98 Nasal Cannula 2 09/29/16 12:10 56 15 119/74 96 Nasal Cannula 2 09/29/16 12:00 75 19 127/76 95 Nasal Cannula 2 09/29/16 11:50 64 18 135/86 97 Nasal Cannula 2 09/29/16 11:40 63 18 141/87 97 Nasal Cannula 4 09/29/16 11:30 61 15 144/103 98 Nasal Cannula 4 09/29/16 11:20 36.5 61 16 149/95 98 Nasal Cannula 4 09/29/16 08:17 36.7 60 18 151/92 96 Room Air 09/29/16 08:00 Room Air 09/29/16 00:00 Room Air 09/28/16 23:45 36.7 71 20 142/91 93 Room Air 09/28/16 20:00 Room Air 09/28/16 16:44 Room Air 09/28/16 15:12 37.0 68 20 139/74 96 Room Air Physical Exam General Appearance: WD/WN, + mild distress Neck: supple, no adenopathy Respiratory/Chest: chest non-tender, lungs clear, normal breath sounds Cardiovascular: no edema, no gallop Abdomen: soft, + tenderness Neurologic/Psychiatric: alert, oriented x 3 Laboratory Results Last 24 Hours Test 09/29/16 09:18 White Blood Count 6.65 K/uL Red Blood Count 4.86 M/uL Hemoglobin 16.4 g/dL Hematocrit 43.9 % Mean Corpuscular Volume 90.3 fL Mean Corpuscular Hemoglobin 33.7 pg Mean Corpuscular Hemoglobin Concent 37.4 g/dl Platelet Count 242 K/uL Mean Platelet Volume 9.7 fL Neutrophils (%) (Auto) 67.2 % Lymphocytes (%) (Auto) 18.9 % Monocytes (%) (Auto) 8.6 % Eosinophils (%) (Auto) 4.5 % Basophils (%) (Auto) 0.6 % Neutrophils # (Auto) 4.47 K/uL Lymphocytes # (Auto) 1.26 K/uL Monocytes # (Auto) 0.57 K/uL Eosinophils # (Auto) 0.30 K/uL Basophils # (Auto) 0.04 K/uL RDW Standard Deviation 40.3 fL RDW Coefficient of Variation 12.3 % Immature Granulocyte % (Auto) 0.2 % Immature Granulocyte # (Auto) 0.01 K/uL Assessment and Plan 51 y/o M who denies any significant medical Hx presents with moderate to severe R sided abdominal pain on 09/24/2015, stable and slowly improving Nonspecific enteritis with thick-walled and edematous small bowel in the right upper to mid abdomen. Etiology could be on an infectious, inflammatory, or less likely an ischemic basis. MR enterography completed on 09/28 - determined closed loop obstruction - general surgery consulted. On 09/29 brought to OR for exploratory laparotomy, reduction of internal hernia, incidental appendectomy, meckels diverticulectomy. GI input appreciated: patient denies use of NSAIDs. The source of the patient's focal abnormality is unclear. Pt has discontinued narcotics, concerned about the possibility of inflammatory bowel disease in addition to infection, especially given the elevated C-reactive protein, GI ordered: anti-SC antibodies for possible Crohn's disease and ordering an MR enterography of the small intestine, report is pending 1.2 cm enhancing lesion the left hepatic lobe in Ct but in US reported a 7 mm left lobe hepatic cys I told him to follow up with pcp or GI New onset of diarrhea, C. difficile is negative, patient did report drinking well water time 2 days prior to the admission, follow-up stool studies negative Continued [facility] stay due to: multiple IV medications needed Discharge planning: home
--- NOTE | 2016-09-29 15:49 | Gastroenterology Progress Note ---
Progress Note Date of Service: Sep 29, 2016 Subjective Pt evaluation today including: conversation w/ patient, conversation w/ family (father), physical exam, chart review, lab review, review of studies, review of inpatient medication list CC f/u abd pain, internal hernia HPI Pt back from OR today and had: exploratory lap, reduction of the internal hernia, closure of the omental defects, incidental appendectomy and incidental Meckel's diverticulectomy. Pt with incisional pain and otherwise no complaints. Review of Systems Respiratory: No shortness of breath Cardiac: No chest pain Medications Current Inpatient Medications Medications (Trade) Dose Ordered Sig/Pamela Route Start Time Stop Time Status Last Admin Dose Admin Ondansetron HCl (Zofran Inj) 4 mg Q6H PRN IV 09/24/16 06:30 10/24/16 06:29 Heparin Sodium (Porcine) 5000 unit 5,000 unit Q12@0800,2000 SQ 09/28/16 20:00 10/28/16 19:59 09/29/16 09:07 5,000 UNIT Pantoprazole Sodium 40 mg/ Syringe 10 ml @ 5 mls/min DAILY@11 IV 09/30/16 11:00 10/30/16 10:59 Potassium Chloride/Dextrose/ Sod Cl (D5W And 1/2nss + 20meq KCl) 1,000 ml @ 125 mls/hr Q8H IV 09/29/16 12:00 10/29/16 11:59 09/29/16 14:46 125 MLS/HR Naloxone HCl (Narcan Inj) 0.1 mg Q5M PRN IV 09/29/16 11:30 10/29/16 11:29 Morphine Sulfate 50 mg 50 mg PRN PRN IV 09/29/16 11:30 10/13/16 11:29 09/29/16 15:09 50 MG Sodium Chloride (Nss 1000ml) 1,000 ml @ 15 mls/hr Q24H IV 09/29/16 11:17 10/29/16 11:16 Fentanyl Citrate (Fentanyl Inj) 50 mcg Q5M PRN IV 09/29/16 11:30 09/29/16 16:30 Hydromorphone HCl (Dilaudid Inj) 0.5 mg Q5M PRN IV 09/29/16 11:30 09/29/16 16:30 Ondansetron HCl 4 mg 4 mg ONE PRN IV 09/29/16 11:30 09/29/16 16:30 Promethazine HCl/ Sodium Chloride (Phenergan Inj/ Nss 50ml) 50.25 ml @ 202 mls/hr ONE PRN IV 09/29/16 11:30 09/29/16 16:30 Ephedrine Sulfate (EpHEDrine SULFATE INJ) 5 mg Q5M PRN IV 09/29/16 11:30 09/29/16 16:30 Atropine Sulfate (Atropine Sulfate 0.1MG/Ml Inj) 0.5 mg Q1M PRN IV 09/29/16 11:30 09/29/16 16:30 Objective Vital Signs Date Time Temp Pulse Resp B/P Pulse Ox O2 Delivery O2 Flow Rate FiO2 09/29/16 14:50 36.3 87 16 114/73 98 Room Air 09/29/16 13:50 75 14 118/75 95 Nasal Cannula 2.0 09/29/16 13:20 71 16 122/81 95 Nasal Cannula 2.0 09/29/16 12:56 Nasal Cannula 2.0 09/29/16 12:50 37.0 73 18 123/75 95 Nasal Cannula 2.0 09/29/16 12:30 36.8 84 20 120/78 96 Nasal Cannula 2 09/29/16 12:20 62 15 108/73 98 Nasal Cannula 2 09/29/16 12:10 56 15 119/74 96 Nasal Cannula 2 09/29/16 12:00 75 19 127/76 95 Nasal Cannula 2 09/29/16 11:50 64 18 135/86 97 Nasal Cannula 2 09/29/16 11:40 63 18 141/87 97 Nasal Cannula 4 09/29/16 11:30 61 15 144/103 98 Nasal Cannula 4 09/29/16 11:20 36.5 61 16 149/95 98 Nasal Cannula 4 09/29/16 08:17 36.7 60 18 151/92 96 Room Air 09/29/16 08:00 Room Air 09/29/16 00:00 Room Air 09/28/16 23:45 36.7 71 20 142/91 93 Room Air 09/28/16 20:00 Room Air 09/28/16 16:44 Room Air Physical Exam General Appearance: WD/WN, no apparent distress Respiratory/Chest: lungs clear, no respiratory distress Cardiovascular: regular rate, rhythm Abdomen: normal bowel sounds, soft, + tenderness (incisional pain) Laboratory Results Last 24 Hours Test 09/29/16 09:18 White Blood Count 6.65 K/uL Red Blood Count 4.86 M/uL Hemoglobin 16.4 g/dL Hematocrit 43.9 % Mean Corpuscular Volume 90.3 fL Mean Corpuscular Hemoglobin 33.7 pg Mean Corpuscular Hemoglobin Concent 37.4 g/dl Platelet Count 242 K/uL Mean Platelet Volume 9.7 fL Neutrophils (%) (Auto) 67.2 % Lymphocytes (%) (Auto) 18.9 % Monocytes (%) (Auto) 8.6 % Eosinophils (%) (Auto) 4.5 % Basophils (%) (Auto) 0.6 % Neutrophils # (Auto) 4.47 K/uL Lymphocytes # (Auto) 1.26 K/uL Monocytes # (Auto) 0.57 K/uL Eosinophils # (Auto) 0.30 K/uL Basophils # (Auto) 0.04 K/uL RDW Standard Deviation 40.3 fL RDW Coefficient of Variation 12.3 % Immature Granulocyte % (Auto) 0.2 % Immature Granulocyte # (Auto) 0.01 K/uL Assessment and Plan abnl SB on CT scan---secondary to internal hernia as most likely etiology and should resolve post op abd pain--related to above improved--- diarrhea--Cdiff and cx and WBCs negative. Partial SBO secondary to internal hernia could do that.
[2016-09-29] MEDS: ONDANSETRON INJ 2 MG/ML 2 ML VIAL IV PRN (16:58)
[2016-09-29 19:34] LABS: S.CEREVISIAE AB IGA 11.6 U (<=20.0)
[2016-09-29 23:29] LABS: O&P GIARDIA AG NOT DETECTED (NOT DETECTED)
[2016-09-30 03:25] VITALS: BP 114/73; PULSE 60; TEMP 36.7; O2SAT 99
[2016-09-30] MEDS: D5W AND 1/2NSS + 20MEQ KCL 1,000 ML IV SCH ×2 (05:10→13:47)
[2016-09-30] MEDS: MoRPHine SULFATE 1 MG/ML 50 ML PCA CASS IV PRN ×3 (06:27→19:16)
[2016-09-30 07:00] VITALS: BP 118/76; PULSE 59; TEMP 36.9; O2SAT 92
[2016-09-30 07:38] LABS: MEAN CELL VOLUME 91.5 fL (80-100); MEAN CORPUSCULAR HEMOGLOBIN 32.7 pg (25-34); MEAN CORPUSCULAR HGB CONC 35.8 g/dl (32-36); MEAN PLATELET VOLUME 9.9 fL (7.4-10.4); PLATELET COUNT 230 K/uL (130-400); RED BLOOD COUNT 4.37 M/uL (4.7-6.1); WHITE BLOOD COUNT 8.26 K/uL (4.8-10.8)
[2016-09-30 08:06] LABS: BUN/CREATININE RATIO 11.2 (10-20); CALCIUM 8.5 mg/dl (8.5-10.1); CREATININE 0.77 mg/dl (0.60-1.40); POTASSIUM 3.9 mmol/L (3.5-5.1)
[2016-09-30] MEDS ORDERED: OXYCODONE/ACETAMINOPHEN 5-325 TAB PO PRN (09:15)
--- NOTE | 2016-09-30 09:21 | SURGERY PROGRESS NOTE ---
DATE: 09/30/2016 DATE: 09/30/2016. Garry is first postoperative day status post exploratory lap, reduction of internal hernia, Meckel diverticulectomy and incidental appendectomy. The patient is alert, coherent. Intraoperative findings were discussed with the patient. Last vitals showed a temperature of 36.9, pulse 59, respirations 16, blood pressure 118/76, O2 sat is 92 on room air. I\T\O he had 325 mL of urine overnight. Laboratory -- hemoglobin is 14.30, WBCs 8.26, BUN 9, creatinine is 0.77. The patient is tolerating some liquids, although he was kept n.p.o. Therefore at this time we will enforce a full liquid diet, increase his activity. He may shower, be given some oral analgesics, but likely he will probably be here until Wednesday unless clinically he improves and is able to tolerate a diet with minimal abdominal discomfort.
[2016-09-30] MEDS: HEPARIN SOD 5000 UNIT/0.5 ML CARP SQ SCH ×2 (09:33→20:10)
[2016-09-30] MEDS: PANTOprazole INJ 40 MG in SYRINGE 0 ML IV SCH (09:33)
--- NOTE | 2016-09-30 10:23 | Anesthesiology Progress Note ---
Anesthesia Post Op Note Date & Time Sep 30, 2016 at 10:22 Vital Signs Pain Intensity: 1.0 Vital Signs Past 12 Hours Date Time Temp Pulse Resp B/P Pulse Ox O2 Delivery O2 Flow Rate FiO2 09/30/16 09:47 Room Air 09/30/16 07:00 36.9 59 16 118/76 92 Room Air 09/30/16 03:25 36.7 60 16 114/73 99 Nasal Cannula 2.0 09/29/16 23:28 Room Air 09/29/16 22:59 36.7 64 16 119/74 96 Room Air Notes Mental Status: alert / awake / arousable, participated in evaluation Pt Amnestic to Procedure: Yes Nausea / Vomiting: adequately controlled Pain: adequately controlled Airway Patency, RR, SpO2: stable & adequate BP & HR: stable & adequate Hydration State: stable & adequate Anesthetic Complications: no major complications apparent
[2016-09-30 10:47] VITALS: BP 147/76; PULSE 62; TEMP 36.6; O2SAT 95
[2016-09-30] MEDS: SODIUM CHLORIDE 0.9% 1000ML 1,000 ML IV SCH (11:12)
--- NOTE | 2016-09-30 14:18 | Progress Note ---
Subjective Date of Service: Sep 30, 2016. Subjective Pt evaluation today including: conversation w/ patient, physical exam, chart review, lab review, review of studies, review of inpatient medication list Pt reports mild abd discomfort Tolerating clears Pain controlled Problem List Medical Problems: (1) Enteritis Status: Acute (2) Intractable epigastric abdominal pain Status: Acute Review of Systems Constitutional: No chills, No fever Respiratory: No cough, No dyspnea on exertion, No shortness of breath, No sputum, No wheezing Cardiac: No chest pain Abdomen: No constipation, No diarrhea, No nausea, No pain, No vomiting Musculoskeletal: No joint pain, No muscle pain Male : No dysuria, No urinary frequency Objective Vital Signs Date Time Temp Pulse Resp B/P Pulse Ox O2 Delivery O2 Flow Rate FiO2 09/30/16 10:47 36.6 62 16 147/76 95 Room Air 09/30/16 09:47 Room Air 09/30/16 07:00 36.9 59 16 118/76 92 Room Air 09/30/16 03:25 36.7 60 16 114/73 99 Nasal Cannula 2.0 09/29/16 23:28 Room Air 09/29/16 22:59 36.7 64 16 119/74 96 Room Air 09/29/16 18:51 36.7 59 18 113/72 97 Nasal Cannula 2.0 09/29/16 16:00 96 Nasal Cannula 2.0 09/29/16 15:51 36.3 75 18 115/68 97 Nasal Cannula 2.0 09/29/16 14:50 36.3 87 16 114/73 98 Room Air Physical Exam General Appearance: WD/WN, no apparent distress Neck: supple, no adenopathy Respiratory/Chest: lungs clear, normal breath sounds Cardiovascular: no edema, no gallop Abdomen: non tender, soft Neurologic/Psychiatric: alert, oriented x 3 Laboratory Results Last 24 Hours Test 09/30/16 06:57 White Blood Count 8.26 K/uL Red Blood Count 4.37 M/uL Hemoglobin 14.3 g/dL Hematocrit 40.0 % Mean Corpuscular Volume 91.5 fL Mean Corpuscular Hemoglobin 32.7 pg Mean Corpuscular Hemoglobin Concent 35.8 g/dl RDW Standard Deviation 42.4 fL RDW Coefficient of Variation 12.6 % Platelet Count 230 K/uL Mean Platelet Volume 9.9 fL Sodium Level 137 mmol/L Potassium Level 3.9 mmol/L Chloride Level 102 mmol/L Carbon Dioxide Level 25 mmol/L Anion Gap 10.0 mmol/L Blood Urea Nitrogen 9 mg/dl Creatinine 0.77 mg/dl Est Creatinine Clear Calc Drug Dose 119.0 ml/min Estimated GFR () 122.6 Estimated GFR (Non- 105.8 BUN/Creatinine Ratio 11.2 Random Glucose 111 mg/dl Calcium Level 8.5 mg/dl Assessment and Plan 51 y/o M who denies any significant medical Hx presents with moderate to severe R sided abdominal pain on 09/24/2015, stable and slowly improving Nonspecific enteritis with thick-walled and edematous small bowel in the right upper to mid abdomen. Etiology could be on an infectious, inflammatory, or less likely an ischemic basis. MR enterography completed on 09/28 - determined closed loop obstruction - general surgery consulted. On 09/29 brought to OR for exploratory laparotomy, reduction of internal hernia, incidental appendectomy, meckels diverticulectomy. Advancing diet at this time. Appreciate surgery recs. Likely DC in 1-2 days once tolerating diet and appropriate resolution of abd pain GI input appreciated: patient denies use of NSAIDs. The source of the patient's focal abnormality is unclear. Pt has discontinued narcotics, concerned about the possibility of inflammatory bowel disease in addition to infection, especially given the elevated C-reactive protein, GI ordered: anti-SC antibodies for possible Crohn's disease and ordering an MR enterography of the small intestine, report is pending 1.2 cm enhancing lesion the left hepatic lobe in Ct but in US reported a 7 mm left lobe hepatic cys I told him to follow up with pcp or GI New onset of diarrhea, C. difficile is negative, patient did report drinking well water time 2 days prior to the admission, follow-up stool studies negative Continued [facility] stay due to: multiple IV medications needed Discharge planning: home
[2016-09-30 15:25] VITALS: BP 124/78; PULSE 61; TEMP 36.8; O2SAT 92
[2016-09-30 19:30] VITALS: BP 134/86; PULSE 66; TEMP 36.9; O2SAT 95
[2016-09-30 23:10] VITALS: BP 117/72; PULSE 72; TEMP 36.9; O2SAT 91
[2016-10-01] VITALS (7 sets, daily range): BP systolic 112–149; BP diastolic 72–92; PULSE 58–75; TEMP 36.6–37.1; O2SAT 91–96
[2016-10-01] MEDS: D5W AND 1/2NSS + 20MEQ KCL 1,000 ML IV SCH ×2 (02:30→16:15)
[2016-10-01] MEDS: MoRPHine SULFATE 1 MG/ML 50 ML PCA CASS IV PRN ×2 (06:39→07:14)
[2016-10-01 07:12] LABS: BUN/CREATININE RATIO 7.7 (10-20); CALCIUM 8.8 mg/dl (8.5-10.1); CREATININE 0.86 mg/dl (0.60-1.40)
[2016-10-01] MEDS: HEPARIN SOD 5000 UNIT/0.5 ML CARP SQ SCH ×2 (07:45→21:06)
--- NOTE | 2016-10-01 07:47 | SURGERY PROGRESS NOTE ---
DATE: 10/01/2016 DATE: 10/01/2016. Garry is 48 hours postop exploratory lap, reduction of internal hernia, Meckel's diverticulectomy and incidental appendectomy. He is resting comfortable was no acute problems. His last temperature 36.8, a pulse 63, respirations 16, blood pressure 112/74, O2 sats 97 on room air. I\T\O he had 1300 mL of urine yesterday and he is tolerating some oral intake, which is liquids. The abdomen is softly distended. The incision is healing well. There is no drainage. At this point, we will continue present therapy. I would like to make him more comfortable, oral analgesics will be sufficient for his pain control and I suspect this will be done by tomorrow which at that time I think he should be able to be discharged.
[2016-10-01] MEDS: PANTOprazole INJ 40 MG in SYRINGE 0 ML IV SCH (10:33)
--- NOTE | 2016-10-01 14:02 | Gastroenterology Progress Note ---
Progress Note Date of Service: Oct 01, 2016 Subjective Pt evaluation today including: conversation w/ patient, physical exam, chart review, lab review, review of studies, review of inpatient medication list CC f/u abd pain, internal hernia HPI Pt states has some incisional abd pain otherwise no other abd pain. Complains of some nausea with percocet. No BMs yet and not passing gas. Review of Systems Respiratory: No shortness of breath Cardiac: No chest pain Medications Current Inpatient Medications Medications (Trade) Dose Ordered Sig/Pamela Route Start Time Stop Time Status Last Admin Dose Admin Ondansetron HCl (Zofran Inj) 4 mg Q6H PRN IV 09/24/16 06:30 10/24/16 06:29 09/29/16 16:58 4 MG Heparin Sodium (Porcine) 5000 unit 5,000 unit Q12@0800,2000 SQ 09/28/16 20:00 10/28/16 19:59 10/01/16 07:45 5,000 UNIT Pantoprazole Sodium 40 mg/ Syringe 10 ml @ 5 mls/min DAILY@11 IV 09/30/16 11:00 10/30/16 10:59 10/01/16 10:33 5 MLS/MIN Potassium Chloride/Dextrose/ Sod Cl (D5W And 1/2nss + 20meq KCl) 1,000 ml @ 75 mls/hr [id number] IV 09/29/16 12:00 10/01/16 02:30 75 MLS/HR Naloxone HCl (Narcan Inj) 0.1 mg Q5M PRN IV 09/29/16 11:30 10/29/16 11:29 Future Hold Morphine Sulfate 50 mg 50 mg PRN PRN IV 09/29/16 11:30 10/13/16 11:29 Future Hold 10/01/16 07:14 50 MG Sodium Chloride (Nss 1000ml) 1,000 ml @ 15 mls/hr Q24H IV 09/29/16 11:17 10/29/16 11:16 Future Hold Oxycodone/ Acetaminophen (Percocet 5-325mg Tab) 1 tab Q4H PRN PO 09/30/16 09:15 10/14/16 09:14 10/01/16 10:03 1 TAB Objective Vital Signs Date Time Temp Pulse Resp B/P Pulse Ox O2 Delivery O2 Flow Rate FiO2 10/01/16 12:15 36.7 58 19 132/77 93 Room Air 10/01/16 08:00 92 Room Air 10/01/16 07:23 36.9 63 18 123/74 92 Room Air 10/01/16 03:05 36.8 63 16 112/74 93 Room Air 09/30/16 23:10 36.9 72 16 117/72 91 Room Air 09/30/16 20:00 Room Air 09/30/16 19:30 36.9 66 20 134/86 95 Room Air 09/30/16 15:25 36.8 61 18 124/78 92 Room Air Physical Exam General Appearance: WD/WN, no apparent distress Respiratory/Chest: lungs clear, no respiratory distress Cardiovascular: regular rate, rhythm Abdomen: normal bowel sounds, soft, no organomegaly, no pulsatile mass, + pertinent finding (subjective incisional pain, no guarding nor rebound, ) Laboratory Results Last 24 Hours Test 10/01/16 06:10 Sodium Level 137 mmol/L Potassium Level 4.0 mmol/L Chloride Level 100 mmol/L Carbon Dioxide Level 29 mmol/L Anion Gap 8.0 mmol/L Blood Urea Nitrogen 7 mg/dl Creatinine 0.86 mg/dl Est Creatinine Clear Calc Drug Dose 106.5 ml/min Estimated GFR () 117.2 Estimated GFR (Non- 101.1 BUN/Creatinine Ratio 7.7 Random Glucose 105 mg/dl Calcium Level 8.8 mg/dl Assessment and Plan abnl SB on CT scan---secondary to internal hernia as most likely etiology and should resolve post op abd pain--related to above improved--- diarrhea--Cdiff and cx and WBCs negative. Partial SBO secondary to internal hernia could do that. none at present with ileus I feel that SB abnormality explained by internal hernia. NO need for GI f/u as outpt unless he has recurrent GI symptoms. Told patient to call GI is he has problems. Will sign off. Please call for further questions.
--- NOTE | 2016-10-01 16:20 | Progress Note ---
Subjective Date of Service: Oct 01, 2016. Subjective Pt evaluation today including: conversation w/ patient, conversation w/ family , physical exam, chart review, lab review, review of studies, review of inpatient medication list Problem List Medical Problems: (1) Enteritis Status: Acute (2) Intractable epigastric abdominal pain Status: Acute Review of Systems Constitutional: No chills, No fever Respiratory: No cough, No dyspnea on exertion, No shortness of breath, No sputum, No wheezing Cardiac: No chest pain, No orthopnea Abdomen: No nausea, No pain, No vomiting Musculoskeletal: No joint pain, No muscle pain Male : No dysuria, No urinary frequency Objective Vital Signs Date Time Temp Pulse Resp B/P Pulse Ox O2 Delivery O2 Flow Rate FiO2 10/01/16 12:15 36.7 58 19 132/77 93 Room Air 10/01/16 08:00 92 Room Air 10/01/16 07:23 36.9 63 18 123/74 92 Room Air 10/01/16 03:05 36.8 63 16 112/74 93 Room Air 09/30/16 23:10 36.9 72 16 117/72 91 Room Air 09/30/16 20:00 Room Air 09/30/16 19:30 36.9 66 20 134/86 95 Room Air Physical Exam General Appearance: WD/WN, no apparent distress Neck: supple, no adenopathy Respiratory/Chest: chest non-tender, lungs clear, normal breath sounds Cardiovascular: no edema, no gallop Abdomen: non tender, soft Neurologic/Psychiatric: alert, oriented x 3 Laboratory Results Last 24 Hours Test 10/01/16 06:10 Sodium Level 137 mmol/L Potassium Level 4.0 mmol/L Chloride Level 100 mmol/L Carbon Dioxide Level 29 mmol/L Anion Gap 8.0 mmol/L Blood Urea Nitrogen 7 mg/dl Creatinine 0.86 mg/dl Est Creatinine Clear Calc Drug Dose 106.5 ml/min Estimated GFR () 117.2 Estimated GFR (Non- 101.1 BUN/Creatinine Ratio 7.7 Random Glucose 105 mg/dl Calcium Level 8.8 mg/dl Assessment and Plan 51 y/o M who denies any significant medical Hx presents with moderate to severe R sided abdominal pain on 09/24/2015, stable and slowly improving Nonspecific enteritis with thick-walled and edematous small bowel in the right upper to mid abdomen. Etiology could be on an infectious, inflammatory, or less likely an ischemic basis. MR enterography completed on 09/28 - determined closed loop obstruction - general surgery consulted. On 09/29 brought to OR for exploratory laparotomy, reduction of internal hernia, incidental appendectomy, meckels diverticulectomy. Advancing diet at this time. Appreciate surgery recs. Likely DC in 1-2 days once tolerating diet and appropriate resolution of abd pain GI input appreciated: patient denies use of NSAIDs. The source of the patient's focal abnormality is unclear. Pt has discontinued narcotics, concerned about the possibility of inflammatory bowel disease in addition to infection, especially given the elevated C-reactive protein, GI ordered: anti-SC antibodies for possible Crohn's disease and ordering an MR enterography of the small intestine, report is pending 1.2 cm enhancing lesion the left hepatic lobe in Ct but in US reported a 7 mm left lobe hepatic cys I told him to follow up with PCP or GI New onset of diarrhea, C. difficile is negative, patient did report drinking well water time 2 days prior to the admission, follow-up stool studies negative Continued [facility] stay due to: multiple IV medications needed Discharge planning: home
[2016-10-01] MEDS: ONDANSETRON INJ 2 MG/ML 2 ML VIAL IV PRN ×2 (17:44→23:46)
[2016-10-01] MEDS ORDERED: PROMETHAZINE HCL INJ 25 MG in SODIUM CHLORIDE 0.9% 50ML 50 ML IV STA (20:12)
[2016-10-01] MEDS ORDERED: POLYETHYLENE (MIRALAX) 17 GM PACK PO ONE (20:12)
[2016-10-01] MEDS ORDERED: SENNA 8.6 MG TAB PO ONE (20:15)
[2016-10-01] MEDS ORDERED: PROMETHAZINE HCL INJ 25 MG in SODIUM CHLORIDE 0.9% 50ML 50 ML IV PRN (20:15)
[2016-10-02 03:52] VITALS: BP 150/97; PULSE 73; TEMP 37; O2SAT 95
[2016-10-02] MEDS: D5W AND 1/2NSS + 20MEQ KCL 1,000 ML IV SCH ×3 (04:40→21:21)
[2016-10-02 06:48] LABS: BUN/CREATININE RATIO 10.1 (10-20); CALCIUM 9.3 mg/dl (8.5-10.1); CREATININE 0.8 mg/dl (0.60-1.40)
--- NOTE | 2016-10-02 07:20 | SURGERY PROGRESS NOTE ---
DATE: 10/02/2016 HISTORY OF PRESENT ILLNESS: Garry is 3rd postoperative day status post exploratory lap, reduction of internal hernia, Meckel diverticulectomy and appendectomy. He stated he did not eat much last night. He said drank some juices. He is a little distended this morning. PHYSICAL EXAMINATION: Last vitals showed a temperature of 37, pulse 73, respirations 18, blood pressure 156/97, O2 sats 95 on room air. I\T\O, he had 350 mL of urine overnight. His abdomen is softly distended, it is nontender and the incision is solid. ASSESSMENT AND PLAN: I suspect he has a postoperative ileus and at this point, we will back off on food intake. Continue with IV fluids and repeat the labs. I discussed with the patient that he most likely has an ileus related to the surgery which is not unusual and should resolve. EVA
[2016-10-02 07:29] VITALS: BP 169/95; PULSE 62; TEMP 36.8; O2SAT 95
[2016-10-02] MEDS: POLYETHYLENE (MIRALAX) 17 GM PACK PO SCH (08:33)
[2016-10-02] MEDS: TRAMADOL HCL 50 MG TAB PO PRN ×3 (08:33→20:27)
[2016-10-02] MEDS: HEPARIN SOD 5000 UNIT/0.5 ML CARP SQ SCH ×2 (08:37→20:16)
[2016-10-02 08:40] VITALS: BP 134/93
[2016-10-02] MEDS: PANTOprazole INJ 40 MG in SYRINGE 0 ML IV SCH (10:42)
--- NOTE | 2016-10-02 10:59 | Progress Note ---
Subjective Date of Service: Oct 02, 2016. Subjective Pt evaluation today including: conversation w/ patient, physical exam, chart review, lab review, review of studies, review of inpatient medication list Problem List Medical Problems: (1) Enteritis Status: Acute (2) Intractable epigastric abdominal pain Status: Acute Review of Systems Constitutional: No chills, No fever Respiratory: No cough, No dyspnea on exertion, No shortness of breath, No sputum, No wheezing Cardiac: No chest pain, No orthopnea Abdomen: No constipation, No diarrhea, No nausea, No pain, No vomiting Musculoskeletal: No joint pain Male : No dysuria, No urinary frequency Objective Vital Signs Date Time Temp Pulse Resp B/P Pulse Ox O2 Delivery O2 Flow Rate FiO2 10/02/16 08:40 134/93 10/02/16 07:29 36.8 62 17 169/95 95 Room Air 10/02/16 07:15 Room Air 10/02/16 03:52 37.0 73 18 150/97 95 Room Air 10/01/16 23:49 37.1 73 18 149/92 91 10/01/16 19:55 Room Air 10/01/16 19:00 36.9 64 16 147/87 93 Room Air 10/01/16 16:00 96 Room Air 10/01/16 12:15 36.7 58 19 132/77 93 Room Air Physical Exam General Appearance: WD/WN, no apparent distress Neck: supple, no adenopathy Respiratory/Chest: chest non-tender, lungs clear Cardiovascular: regular rate, rhythm, no gallop Abdomen: soft, no organomegaly, + tenderness Neurologic/Psychiatric: alert, oriented x 3 Laboratory Results Last 24 Hours Test 10/02/16 05:00 Sodium Level 137 mmol/L Potassium Level 4.0 mmol/L Chloride Level 100 mmol/L Carbon Dioxide Level 28 mmol/L Anion Gap 9.0 mmol/L Blood Urea Nitrogen 8 mg/dl Creatinine 0.80 mg/dl Est Creatinine Clear Calc Drug Dose 114.5 ml/min Estimated GFR () 120.7 Estimated GFR (Non- 104.2 BUN/Creatinine Ratio 10.1 Random Glucose 127 mg/dl Calcium Level 9.3 mg/dl Assessment and Plan 51 y/o M who denies any significant medical Hx presents with moderate to severe R sided abdominal pain on 09/24/2015, stable and slowly improving Nonspecific enteritis with thick-walled and edematous small bowel in the right upper to mid abdomen. Etiology could be on an infectious, inflammatory, or less likely an ischemic basis. MR enterography completed on 09/28 - determined closed loop obstruction - general surgery consulted. On 09/29 brought to OR for exploratory laparotomy, reduction of internal hernia, incidental appendectomy, meckels diverticulectomy.Appreciate surgery recs. Likely DC in 1-2 days once tolerating diet and appropriate resolution of abd pain. GI input appreciated: patient denies use of NSAIDs. The source of the patient's focal abnormality is unclear. Pt has discontinued narcotics, concerned about the possibility of inflammatory bowel disease in addition to infection, especially given the elevated C-reactive protein, GI ordered: anti-SC antibodies for possible Crohn's disease and ordering an MR enterography of the small intestine, report is pending 1.2 cm enhancing lesion the left hepatic lobe in Ct but in [place] reported a 7 mm left lobe hepatic cys I told him to follow up with PCP or GI New onset of diarrhea, C. difficile is negative, patient did report drinking well water time 2 days prior to the admission, follow-up stool studies negative Continued [facility] stay due to: multiple IV medications needed Discharge planning: home
--- NOTE | 2016-10-02 13:08 | DIAGNOSTIC IMAGING REPORT ---
KUB CLINICAL HISTORY: Abdominal pain and distention COMPARISON STUDY: CT scan dated 09/24/2016, MR enterography dated 09/28/2016 FINDINGS: There are multiple dilated small bowel loops measuring up to 52 mm in diameter. Small bowel is dilated out of proportion to the degree of colonic gas. The findings are suspicious for small bowel obstruction although a postoperative ileus could appear similar. Clinical and radiographic follow-up is recommended. IMPRESSION: Abnormal bowel gas pattern with multiple dilated small bowel loops. While the findings are suspicious for a small bowel obstruction, a postoperative ileus could potentially appear similar. Clinical and radiographic follow-up is recommended. Electronically signed by: Lux Apple M.D. 10/02/2016 1:06 PM Dictated Date/Time: 10/02/2016 1:04 PM
[2016-10-02 15:30] VITALS: O2SAT 93
[2016-10-02 16:00] VITALS: BP 154/96; PULSE 74; TEMP 36.9; O2SAT 93
[2016-10-02 23:00] VITALS: BP 156/90; PULSE 82; TEMP 36.8; O2SAT 94
[2016-10-03] MEDS: D5W AND 1/2NSS + 20MEQ KCL 1,000 ML IV SCH ×3 (04:57→21:52)
[2016-10-03 06:46] LABS: HEMATOCRIT 42.1 % (42-52); MEAN CELL VOLUME 89.8 fL (80-100); MEAN CORPUSCULAR HEMOGLOBIN 32.4 pg (25-34); MEAN CORPUSCULAR HGB CONC 36.1 g/dl (32-36); MEAN PLATELET VOLUME 9.4 fL (7.4-10.4); PLATELET COUNT 271 K/uL (130-400); RED BLOOD COUNT 4.69 M/uL (4.7-6.1); WHITE BLOOD COUNT 10.52 K/uL (4.8-10.8)
[2016-10-03 08:14] VITALS: BP 140/80; PULSE 65; TEMP 36.4; O2SAT 95
--- NOTE | 2016-10-03 08:28 | SURGERY PROGRESS NOTE ---
DATE: 10/03/2016 Garry feels much better today, he started passing some flatus. His abdomen is a bit softer, although he still has an occasional hiccup. His last vitals showed a temperature of 36.8, pulse 82, respirations 16, blood pressure 156/90. I\T\O, he had 500 mL of urine overnight and he is fairly balanced. The incision is free of any drainage. Laboratory calderon, his white count is 10.52, hemoglobin is 15.2, was probably hemoconcentrated from yesterday. At this point, we will start him on clear liquids again but very slowly. I suspect he is opening up and will probably be able to be discharged tomorrow.
[2016-10-03] MEDS: POLYETHYLENE (MIRALAX) 17 GM PACK PO SCH (08:43)
[2016-10-03] MEDS: HEPARIN SOD 5000 UNIT/0.5 ML CARP SQ SCH ×2 (08:49→19:48)
[2016-10-03 10:22] VITALS: O2SAT 95
[2016-10-03] MEDS: PANTOprazole INJ 40 MG in SYRINGE 0 ML IV SCH (11:05)
[2016-10-03] MEDS: ONDANSETRON INJ 2 MG/ML 2 ML VIAL IV PRN ×2 (11:08→21:52)
[2016-10-03 11:49] VITALS: BP 150/90; PULSE 57; TEMP 36.7; O2SAT 95
--- NOTE | 2016-10-03 15:10 | Progress Note ---
Subjective Date of Service: Oct 03, 2016. Subjective Pt evaluation today including: conversation w/ patient, conversation w/ family , physical exam, chart review, lab review, review of studies, review of inpatient medication list Problem List Medical Problems: (1) Enteritis Status: Acute (2) Intractable epigastric abdominal pain Status: Acute Review of Systems Constitutional: No chills, No fever Respiratory: No cough, No shortness of breath, No sputum, No wheezing Cardiac: No chest pain, No orthopnea Abdomen: + pain, No diarrhea, No nausea, No vomiting Musculoskeletal: No joint pain, No muscle pain Male : No dysuria, No urinary frequency Objective Vital Signs Date Time Temp Pulse Resp B/P Pulse Ox O2 Delivery O2 Flow Rate FiO2 10/03/16 11:49 36.7 57 17 150/90 95 Room Air 10/03/16 10:22 95 10/03/16 08:14 36.4 65 18 140/80 95 Room Air 10/03/16 07:44 Room Air 10/02/16 23:30 Room Air 10/02/16 23:00 36.8 82 16 156/90 94 Room Air 10/02/16 16:00 36.9 74 18 154/96 93 Room Air 10/02/16 15:30 93 Room Air Physical Exam General Appearance: WD/WN, + mild distress Neck: supple, no adenopathy Respiratory/Chest: lungs clear, normal breath sounds Cardiovascular: no edema, no gallop Abdomen: soft, + tenderness Neurologic/Psychiatric: alert, oriented x 3 Laboratory Results Last 24 Hours Test 10/03/16 06:41 White Blood Count 10.52 K/uL Red Blood Count 4.69 M/uL Hemoglobin 15.2 g/dL Hematocrit 42.1 % Mean Corpuscular Volume 89.8 fL Mean Corpuscular Hemoglobin 32.4 pg Mean Corpuscular Hemoglobin Concent 36.1 g/dl RDW Standard Deviation 40.8 fL RDW Coefficient of Variation 12.5 % Platelet Count 271 K/uL Mean Platelet Volume 9.4 fL Assessment and Plan 51 y/o M who denies any significant medical Hx presents with moderate to severe R sided abdominal pain on 09/24/2015, stable and slowly improving Nonspecific enteritis with thick-walled and edematous small bowel in the right upper to mid abdomen. Etiology could be on an infectious, inflammatory, or less likely an ischemic basis. MR enterography completed on 09/28 - determined closed loop obstruction - general surgery consulted. On 09/29 brought to OR for exploratory laparotomy, reduction of internal hernia, incidental appendectomy, meckels diverticulectomy.Appreciate surgery recs. Likely DC in 1-2 days once tolerating diet and appropriate resolution of abd pain. GI input appreciated: patient denies use of NSAIDs. The source of the patient's focal abnormality is unclear. Pt has discontinued narcotics, concerned about the possibility of inflammatory bowel disease in addition to infection, especially given the elevated C-reactive protein, GI ordered: anti-SC antibodies for possible Crohn's disease and ordering an MR enterography of the small intestine, report is pending 1.2 cm enhancing lesion the left hepatic lobe in Ct but in [place] reported a 7 mm left lobe hepatic cys I told him to follow up with PCP or GI New onset of diarrhea, C. difficile is negative, patient did report drinking well water time 2 days prior to the admission, follow-up stool studies negative Continued [facility] stay due to: multiple IV medications needed Discharge planning: home
[2016-10-03 15:44] VITALS: BP 140/80; PULSE 60; TEMP 36.8; O2SAT 95
[2016-10-03 23:05] VITALS: BP 125/77; PULSE 62; TEMP 36.8; O2SAT 93
[2016-10-04] MEDS: D5W AND 1/2NSS + 20MEQ KCL 1,000 ML IV SCH ×3 (06:01→21:18)
[2016-10-04 07:13] VITALS: BP 133/83; PULSE 60; TEMP 36.8; O2SAT 93
[2016-10-04] MEDS: POLYETHYLENE (MIRALAX) 17 GM PACK PO SCH (08:58)
[2016-10-04] MEDS: HEPARIN SOD 5000 UNIT/0.5 ML CARP SQ SCH ×2 (09:03→20:29)
--- NOTE | 2016-10-04 10:21 | SURGERY PROGRESS NOTE ---
DATE: 10/04/2016 Teddy is fifth postoperative day, exploratory lap, reduction internal hernia omentum Meckel's diverticulum with incidental appendectomy. As I walked in the room today, his was sitting in bed and he on a chair. He was trying to drink some orange juice, but both were crying at the time that I walked in. I did not address that issue at all. Garry is complaining that he cannot eat anything, once he eats something he gets full. He is trying to drink some orange juice. His last vitals showed him a temperature of 36.8, pulse 60, respirations 16, blood pressure 133/83, O2 sats 93 on room air. Yesterday he had 4 bowel movements. He had urine output of 1700. His abdomen is soft. The incision I examined yesterday was completely benign. At this point, I think there is some psychological overplay. I do not see anything objectively at this time that would account for his not being able to drink anything. From my point of view, as I told he and his , he can go home at any time he meets the criteria that he is tolerating a diet and oral analgesics sufficient, and the vitals stable. Whether that will happen today or tomorrow, I will leave it up to the medical service to make the final decision. From my point of view, I will see him back in the office in 1 week. At that time, we will take out the magan. He should not drive until I see him and do not lift anything heavier than 10 pounds. EVA
--- NOTE | 2016-10-04 11:02 | Progress Note ---
Subjective Date of Service: Oct 04, 2016. Subjective Pt evaluation today including: conversation w/ patient, physical exam, chart review, lab review, review of studies, review of inpatient medication list Problem List Medical Problems: (1) Enteritis Status: Acute (2) Intractable epigastric abdominal pain Status: Acute Review of Systems Constitutional: No chills, No fever Respiratory: No cough, No dyspnea on exertion, No shortness of breath, No sputum, No wheezing Cardiac: No chest pain, No orthopnea Abdomen: + pain, No diarrhea, No nausea, No vomiting Musculoskeletal: No joint pain, No muscle pain Male : No dysuria, No urinary frequency Objective Vital Signs Date Time Temp Pulse Resp B/P Pulse Ox O2 Delivery O2 Flow Rate FiO2 10/04/16 07:43 Room Air 10/04/16 07:13 36.8 60 16 133/83 93 Room Air 10/04/16 01:00 Room Air 10/03/16 23:05 36.8 62 18 125/77 93 Room Air 10/03/16 15:44 36.8 60 21 140/80 95 Room Air 10/03/16 15:40 Room Air 10/03/16 11:49 36.7 57 17 150/90 95 Room Air Physical Exam General Appearance: WD/WN, no apparent distress Neck: supple, no adenopathy Respiratory/Chest: chest non-tender, lungs clear, normal breath sounds Cardiovascular: no edema, no gallop Abdomen: normal bowel sounds, soft Neurologic/Psychiatric: alert, normal mood/affect, oriented x 3 Assessment and Plan 51 y/o M who denies any significant medical Hx presents with moderate to severe R sided abdominal pain on 09/24/2015, stable and slowly improving Nonspecific enteritis with thick-walled and edematous small bowel in the right upper to mid abdomen. Etiology could be on an infectious, inflammatory, or less likely an ischemic basis. MR enterography completed on 09/28 - determined closed loop obstruction - general surgery consulted. On 09/29 brought to OR for exploratory laparotomy, reduction of internal hernia, incidental appendectomy, meckels diverticulectomy. Pt likely post op ileus, conservative measures at this time. Tolerating liquids, likely DC in 1-2 days GI input appreciated: patient denies use of NSAIDs. The source of the patient's focal abnormality is unclear. Pt has discontinued narcotics, concerned about the possibility of inflammatory bowel disease in addition to infection, especially given the elevated C-reactive protein, GI ordered: anti-SC antibodies for possible Crohn's disease and ordering an MR enterography of the small intestine, report is pending 1.2 cm enhancing lesion the left hepatic lobe in Ct but in [place] reported a 7 mm left lobe hepatic cys I told him to follow up with PCP or GI New onset of diarrhea, C. difficile is negative, patient did report drinking well water time 2 days prior to the admission, follow-up stool studies negative Continued [facility] stay due to: multiple IV medications needed Discharge planning: home
[2016-10-04] MEDS: PANTOprazole INJ 40 MG in SYRINGE 0 ML IV SCH (11:28)
[2016-10-04] MEDS ORDERED: ACETAMINOPHEN 325 MG TAB PO PRN (12:30)
[2016-10-04] MEDS ORDERED: ACETAMINOPHEN 325 MG TAB PO SCH (12:30)
[2016-10-04] MEDS ORDERED: ACETAMINOPHEN 325 MG TAB ONE (13:35)
[2016-10-04 15:15] VITALS: O2SAT 95
[2016-10-04 15:25] VITALS: BP 133/80; PULSE 61; TEMP 36.8; O2SAT 95
[2016-10-04 23:15] VITALS: BP 148/89; PULSE 69; TEMP 36.7; O2SAT 97
[2016-10-05] MEDS: ONDANSETRON INJ 2 MG/ML 2 ML VIAL IV PRN (01:51)
[2016-10-05] MEDS: D5W AND 1/2NSS + 20MEQ KCL 1,000 ML IV SCH (05:15)
[2016-10-05 07:03] VITALS: BP 130/82; PULSE 56; TEMP 36.8; O2SAT 95
[2016-10-05] MEDS: POLYETHYLENE (MIRALAX) 17 GM PACK PO SCH (07:39)
[2016-10-05] MEDS: HEPARIN SOD 5000 UNIT/0.5 ML CARP SQ SCH ×2 (08:11→20:19)
[2016-10-05 08:27] LABS: BASO % 0.4 %; BASO ABS # 0.03 K/uL (0-0.2); COMPLETE YES; EOS % 2.5 %; HEMATOCRIT 40.3 % (42-52); IG% 0.5 %; LYMPH % 8.8 %; LYMPH ABS # 0.68 K/uL (1.2-3.4); MEAN CELL VOLUME 89.6 fL (80-100); MEAN CORPUSCULAR HEMOGLOBIN 32.4 pg (25-34); MEAN CORPUSCULAR HGB CONC 36.2 g/dl (32-36); MEAN PLATELET VOLUME 9.2 fL (7.4-10.4); MONO % 11.5 %; NEUT % 76.3 %; PLATELET COUNT 271 K/uL (130-400); WHITE BLOOD COUNT 7.71 K/uL (4.8-10.8)
--- NOTE | 2016-10-05 08:41 | SURGERY PROGRESS NOTE ---
DATE: 10/05/2016 Garry is 6th postoperative day status post exploratory lap, reduction of an internal hernia and the omentum and Meckel's diverticulectomy, and incidental appendectomy. He states he has had multiple bowel movements during the night and actually, there are liquid in nature with significant amount of gas, although he still states he is a little bit bloated. His last vitals show a temperature of 36.8, a pulse 56, respirations 16, blood pressure 130/82, and O2 sats 95% on room air. I\T\O, he had 5 bowel movements yesterday, 1 overnight. Urine output has been excellent and his I\T\O has been fairly balanced. The abdomen is softly distended, although softer than it had been. The incision is intact and solid. At this point, I will repeat the labs on him, we have not had and also check stool for C. diff. His oral intake has been marginal according to the patient. He is afraid to eat because he may get nauseated, but he is a very hard patient to read as far as his all symptomatology. Having said that, I will check a liver function test to see what his nutritional status is at this time.
[2016-10-05 08:57] LABS: BUN/CREATININE RATIO 12.4 (10-20); CALCIUM 8.5 mg/dl (8.5-10.1); CREATININE 0.74 mg/dl (0.60-1.40); POTASSIUM 3.9 mmol/L (3.5-5.1)
--- NOTE | 2016-10-05 10:03 | Progress Note ---
Subjective Date of Service: Oct 05, 2016. Subjective Pt evaluation today including: conversation w/ patient, physical exam, chart review, lab review, review of studies, conversation w/ direct sales consultant, review of inpatient medication list Voiding: no voiding problems Was having 3 loose bowel movements since midnight, feeling okay, still have low appetite, had some burping , no other complaint, Problem List Medical Problems: (1) Enteritis Status: Acute (2) Intractable epigastric abdominal pain Status: Acute Review of Systems Constitutional: No chills, No fatigue, No fever, No problem reported, No sweats , No weakness, No weight loss Eyes: No diplopia, No discharge, No eye pain, No redness, No worsening of vision ENT: No dental problems, No hearing loss, No nasal symptoms, No sore throat, No tinnitus, No trouble swallowing, No unusual epistaxis Respiratory: No cough, No dyspnea at rest, No dyspnea on exertion, No hemoptysis, No shortness of breath, No sputum, No wheezing Cardiac: No PND, No chest pain, No claudication, No edema, No orthopnea, No palpitations Abdomen: + diarrhea, + see HPI, No constipation Musculoskeletal: No calf pain, No joint pain, No muscle pain, No swelling Male : No dysuria, No hematuria, No incontinence, No nocturia more than once/ night, No slowing stream, No urinary frequency Neurologic: No balance problems, No memory loss, No numbness/tingling, No paralysis, No vertigo, No weakness Psychiatric: No anhedonism, No anxiety, No depression symptoms, No insomnia, No substance abuse Heme: No abnormal bleeding/bruising, No clotting problems, No night sweats, No swollen lymph nodes Endo: No excessive thirst, No excessive urination, No fatigue Skin: No bleeding, No color change, No itch, No new/changing skin lesions, No rash Objective Vital Signs Date Time Temp Pulse Resp B/P Pulse Ox O2 Delivery O2 Flow Rate FiO2 10/05/16 08:03 Room Air 10/05/16 07:03 36.8 56 16 130/82 95 Room Air 10/04/16 23:35 Room Air 10/04/16 23:15 36.7 69 16 148/89 97 Room Air 10/04/16 15:25 36.8 61 16 133/80 95 Room Air 10/04/16 15:15 95 Room Air Physical Exam General Appearance: WD/WN, no apparent distress Eyes: normal inspection, PERRL, EOMI, sclerae normal ENT: normal ENT inspection, hearing grossly normal, pharynx normal Neck: supple, no adenopathy, thyroid normal, no JVD, no carotid bruits, trachea midline Respiratory/Chest: chest non-tender, lungs clear, normal breath sounds, no respiratory distress, no accessory muscle use Cardiovascular: regular rate, rhythm, no edema, no gallop, no JVD, no murmur Abdomen: normal bowel sounds, non tender, soft, no organomegaly, no pulsatile mass, + abnormal bowel sounds (decreased bowel sound) Extremities: normal range of motion, non-tender, normal inspection, no pedal edema, no calf tenderness, normal capillary refill, pelvis stable 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, no motor/sensory deficits, alert, normal mood/affect, oriented x 3 Skin: normal color, warm/dry, no rash Lymphatic: no adenopathy Laboratory Results Last 24 Hours Test 10/05/16 08:15 White Blood Count 7.71 K/uL Red Blood Count 4.50 M/uL Hemoglobin 14.6 g/dL Hematocrit 40.3 % Mean Corpuscular Volume 89.6 fL Mean Corpuscular Hemoglobin 32.4 pg Mean Corpuscular Hemoglobin Concent 36.2 g/dl Platelet Count 271 K/uL Mean Platelet Volume 9.2 fL Neutrophils (%) (Auto) 76.3 % Lymphocytes (%) (Auto) 8.8 % Monocytes (%) (Auto) 11.5 % Eosinophils (%) (Auto) 2.5 % Basophils (%) (Auto) 0.4 % Neutrophils # (Auto) 5.88 K/uL Lymphocytes # (Auto) 0.68 K/uL Monocytes # (Auto) 0.89 K/uL Eosinophils # (Auto) 0.19 K/uL Basophils # (Auto) 0.03 K/uL RDW Standard Deviation 40.3 fL RDW Coefficient of Variation 12.6 % Immature Granulocyte % (Auto) 0.5 % Immature Granulocyte # (Auto) 0.04 K/uL Sodium Level 137 mmol/L Potassium Level 3.9 mmol/L Chloride Level 102 mmol/L Carbon Dioxide Level 24 mmol/L Anion Gap 11.0 mmol/L Blood Urea Nitrogen 9 mg/dl Creatinine 0.74 mg/dl Est Creatinine Clear Calc Drug Dose 123.8 ml/min Estimated GFR () 124.7 Estimated GFR (Non- 107.6 BUN/Creatinine Ratio 12.4 Random Glucose 107 mg/dl Calcium Level 8.5 mg/dl Total Bilirubin 0.6 mg/dl Direct Bilirubin 0.1 mg/dl Aspartate Amino Transf (AST/SGOT) 15 U/L Alanine Aminotransferase (ALT/SGPT) 19 U/L Alkaline Phosphatase 72 U/L Total Protein 7.0 gm/dl Albumin 3.3 gm/dl Assessment and Plan 51 y/o M who denies any significant medical Hx admitted on 09/24/2016 with moderate to severe R sided abdominal pain, was found has a small bowel obstruction , has been stable and slowly improving Nonspecific enteritis with thick-walled and edematous small bowel in the right upper to mid abdomen upon admission Etiology could be on an infectious, inflammatory, or less likely an ischemic basis. MR enterography completed on 09/28 2016 - determined closed loop obstruction general surgery consulted. On 09/29 2016 brought to OR for exploratory laparotomy , reduction of internal hernia, incidental appendectomy, meckels diverticulectomy. Pt likely developed post op ileus, conservative measures Now has diarrhea, stool samples for C. difficile was sent. Tolerating liquids, advance diet per surgeon GI input appreciated: patient denies use of NSAIDs. The source of the patient's focal abnormality is unclear. has discontinued narcotics, concerned about the possibility of inflammatory bowel disease in addition to infection, especially given the elevated C- reactive protein, GI ordered: anti-SC antibodies for possible Crohn's disease and an MR enterography of the small intestine was ordered by GI, reported see below: Dilated loop of small bowel within the right lower quadrant. The dilatation has slightly progressed. However, the adjacent inflammatory change/fluid has improved. There appears to be both proximal and distal decompressed loops of bowel with possible twisting of the mesentery within the right lower quadrant. Therefore, this is consistent with a closed loop obstruction secondary to an internal hernia. 2. A 1.1 cm hepatic hemangioma. 3.. A few small hepatic cysts. 4. These findings were discussed with Dr. Mcclelland at 1:28 PM on 09/28/2016. 1.2 cm enhancing lesion the left hepatic lobe in Ct but in US reported a 7 mm left lobe hepatic cys I told him to follow up with PCP or GI We'll continue current care, diet per surgeon, I encouraged him up and walk and activities Discontinue IV fluid, change Protonix to oral, Possible discharge in 1-2 days Continued [facility] stay due to: multiple IV medications needed Discharge planning: home
[2016-10-05] MEDS: PANTOprazole SOD 40 MG TAB PO SCH (10:26)
[2016-10-05 14:21] VITALS: BP 101/66; PULSE 62; O2SAT 98
[2016-10-05 15:40] VITALS: BP 138/87; PULSE 65; TEMP 36.8; O2SAT 96
[2016-10-05 23:48] VITALS: BP 130/79; PULSE 68; TEMP 36.6; O2SAT 96
[2016-10-06 05:40] LABS: HEMATOCRIT 41.1 % (42-52); MEAN CELL VOLUME 88.4 fL (80-100); MEAN CORPUSCULAR HEMOGLOBIN 32.3 pg (25-34); MEAN CORPUSCULAR HGB CONC 36.5 g/dl (32-36); MEAN PLATELET VOLUME 9.2 fL (7.4-10.4); PLATELET COUNT 264 K/uL (130-400); RED BLOOD COUNT 4.65 M/uL (4.7-6.1); WHITE BLOOD COUNT 9.32 K/uL (4.8-10.8)
--- NOTE | 2016-10-06 05:57 | SURGERY PROGRESS NOTE ---
DATE: 10/06/2016 Garry said he is feeling better. He seems like he is turning the corner. He has significant amount of flatus, less abdominal distention. He has had 4 bowel movements yesterday. Last laboratories showed a white count of 9.32, hemoglobin 15.0. PRP is pending. The abdomen is soft, minimally distended. The incision is solid. There is no drainage from the incision. At this point he is tolerating full liquids. Advised him to start a regular diet this weekend, he can choose whatever he would like and depending how he does clinically today and how he feels he could certainly can be discharged. Instructions have been given to him before.
[2016-10-06 06:10] LABS: BUN/CREATININE RATIO 17.2 (10-20); CALCIUM 8.9 mg/dl (8.5-10.1); CREATININE 0.71 mg/dl (0.60-1.40); MAGNESIUM 2.2 mg/dl (1.8-2.4); POTASSIUM 3.7 mmol/L (3.5-5.1)
[2016-10-06 07:50] VITALS: BP 135/81; PULSE 67; TEMP 36.7; O2SAT 97
[2016-10-06] MEDS: PANTOprazole SOD 40 MG TAB PO SCH (08:39)
[2016-10-06] MEDS: POLYETHYLENE (MIRALAX) 17 GM PACK PO SCH (08:39)
[2016-10-06] MEDS: HEPARIN SOD 5000 UNIT/0.5 ML CARP SQ SCH (08:44)
[2016-10-06] MEDS ORDERED: ULT50X PO (09:47)
[2016-10-06] MEDS ORDERED: PRT40 PO (09:47)
[2016-10-06] MEDS ORDERED: MRLP17 PO (09:47)
--- NOTE | 2016-10-06 09:48 | Discharge Instructions ---
Discharge Instructions Admission Reason for Admission: Enteritis, Intractable Epigastric Abdominal Pain Discharge Discharge Diagnosis / Problem: enteritis Discharge Goals Goal(s): Decrease discomfort, Improve function, Increase independence, Improve disease control, Improve nutritional status, Learn about illness, Diagnostic testing, Therapeutic intervention, Prevent Disease Progression, Specific goals Activity Recommendations Activity Limitations: resume your previous activity Lifting Limitations: none Exercise/Sports Limitations: none May Resume Sexual Activity: when tolerated Shower/Bathe: no limitations . Instructions / Follow-Up Instructions / Follow-Up you have enteritis you have abdominal obstruction s/p procedure you need to follow up with Dr. Mcclelland in 1-2 weeks as instructed you need to follow up with surgeon in 1-2 weeks as instructed - you need to follow up with your primary care physician in 1 week, - low fiber diet - take medication as instructed, never overdose or any misuse, or take with alcohol, because misuse of medicine may cause organ damage or , call your primary care physician if have questions of medicaitons. - call your primary care physician OR go to local emergency room if has any fever/chill, chest pain, shortness of breathing, nausea/vomiting/abdominal pain , facial droop/slurry speech/local weakness, or if has any questions. - fall precaution - diet as instructed - you need to follow up with your subspecialist - you should understand that it is important to follow up the above instruction , and "not following the above instruction" may cause delayed or missed care of your medical conditions which may cause permanent organ damage and even . Current Hospital Diet Patient's current hospital diet: Regular Diet Discharge Diet Recommended Diet: Low Fiber Diet Procedures Procedures Performed: Exploratory Laparotomy, Reduction of internal hernia, Incidental appendectomy, Meckels diverticulectomy Pending Studies Studies pending at discharge: no Medical Emergencies . Who to Call and When: Medical Emergencies: If at any time you feel your situation is an emergency, please call 911 immediately. . Non-Emergent Contact Non-Emergency issues call your: Primary Care Provider, Subway Train Operator, Surgeon . . "Provider Documentation" section prepared by Michael Hogue. VTE Core Measure Inpt VTE Proph given/why not?: Unfractionated heparin SQ
[2016-10-06 10:02] VITALS: BP 135/81; PULSE 67; TEMP 36.7; O2SAT 97
--- NOTE | 2016-10-06 11:15 | Discharge Summary ---
Discharge Summary Admission Date: Sep 29, 2016 at 12:58 Discharge Date: Oct 06, 2016 Principal Diagnosis: bowel obstruction, enteritis Problems/Secondary Diagnoses: Bowel obstruction, s/p exploratory laparotomy, reduction of internal hernia, incidental appendectomy, meckels diverticulectomy. Procedures: exploratory laparotomy, reduction of internal hernia, incidental appendectomy, meckels diverticulectomy. Consultations: Surgeon, GI Medication Reconciliation New Medications: Pantoprazole (Pantoprazole Sodium) 40 Mg Tab 40 MG PO QAM for 14 Days, #14 TAB Polyethylene (Miralax) 17 Gm Pow 17 GM PO DAILY for 14 Days hold if have BM Tramadol HCl (Tramadol HCl) 50 Mg Tab 50 MG PO Q4H PRN for Pain for 3 Days, #12 TAB Continued Medications: Ascorbic Acid (Vitamin C) 500 Mg Cap 500 MG PO DAILY Discharge Exam Doing well, out of bed, tolerate diet, has 2 bowel movement today Review of Systems: Constitutional: No chills, No fatigue, No fever, No problem reported, No sweats, No weakness, No weight loss Eyes: No diplopia, No discharge, No eye pain, No problem reported, No redness, No worsening of vision ENT: No dental problems, No hearing loss, No nasal symptoms, No problem reported, No sore throat, No tinnitus, No trouble swallowing, No unusual epistaxis Respiratory: No cough, No dyspnea at rest, No dyspnea on exertion, No hemoptysis, No problem reported, No shortness of breath, No sputum, No wheezing Cardiovascular: No PND, No chest pain, No claudication, No edema, No orthopnea, No palpitations, No problem reported Abdomen: No GI bleeding, No constipation, No diarrhea, No nausea, No pain, No problem reported, No vomiting Musculoskeletal: No calf pain, No joint pain, No muscle pain, No problem reported, No swelling Genitourinary - Male: No dysuria, No hematuria, No impotence, No lesions, No penile discharge, No problem reported, No urinary frequency, No urinary hesitancy, No urinary incontinence, No urinary retention, No urinary urgency Neurologic: No balance problems, No memory loss, No numbness/tingling, No paralysis, No problem reported, No vertigo, No weakness Psychiatric: No anhedonism, No anxiety, No depression symptoms, No insomnia , No problem reported, No substance abuse Hematologic / Lymphatic: No abnormal bleeding/bruising, No clotting problems , No night sweats, No problem reported, No swollen lymph nodes Integumentary: No bleeding, No color change, No itch, No new/changing skin lesions, No problem reported, No rash Physical Exam: General Appearance: WD/WN, no apparent distress Eyes: normal inspection, PERRL ENT: normal ENT inspection, hearing grossly normal, TMs normal Neck: supple, no adenopathy Respiratory/Chest: chest non-tender, no respiratory distress, no accessory muscle use, + decreased breath sounds Cardiovascular: regular rate, rhythm, no edema, no gallop, no JVD Abdomen / GI: normal bowel sounds, non tender, soft, no organomegaly, no pulsatile mass Extremities: normal inspection, no calf tenderness, normal capillary refill , no pedal edema 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 MR enterography completed on 09/28 2016 - determined closed loop obstruction general surgery consulted. On 09/29 2016 brought to OR for exploratory laparotomy , reduction of internal hernia, incidental appendectomy, meckels diverticulectomy. Pt likely developed post op ileus, conservative measures Now has diarrhea, stool samples for C. difficile was ordered but possible never been sent, however patient's diarrhea is slowing down, Tolerating liquids, advance diet per surgeon, and he tolerated well GI input appreciated: patient denies use of NSAIDs. The source of the patient's focal abnormality is unclear. has discontinued narcotics, concerned about the possibility of inflammatory bowel disease in addition to infection, especially given the elevated C- reactive protein, GI ordered: anti-SC antibodies for possible Crohn's disease and an MR enterography of the small intestine was ordered by GI, reported see below: Dilated loop of small bowel within the right lower quadrant. The dilatation has slightly progressed. However, the adjacent inflammatory change/fluid has improved. There appears to be both proximal and distal decompressed loops of bowel with possible twisting of the mesentery within the right lower quadrant. Therefore, this is consistent with a closed loop obstruction secondary to an internal hernia. 2. A 1.1 cm hepatic hemangioma. 3.. A few small hepatic cysts. 4. These findings were discussed with Dr. Mcclelland at 1:28 PM on 09/28/2016. 1.2 cm enhancing lesion the left hepatic lobe in Ct but in US reported a 7 mm left lobe hepatic cys I told him to follow up with PCP or GI I encouraged him continue up and walk and activities Follow-up surgeon as instructed Is going to discharge home in good condition Instructions / Follow-Up you have enteritis you have abdominal obstruction s/p procedure you need to follow up with Dr. Mcclelland in 1-2 weeks as instructed you need to follow up with surgeon in 1-2 weeks as instructed - you need to follow up with your primary care physician in 1 week, - low fiber diet - take medication as instructed, never overdose or any misuse, or take with alcohol, because misuse of medicine may cause organ damage or , call your primary care physician if have questions of medicaitons. - call your primary care physician OR go to local emergency room if has any fever/chill, chest pain, shortness of breathing, nausea/vomiting/abdominal pain , facial droop/slurry speech/local weakness, or if has any questions. - fall precaution - diet as instructed - you need to follow up with your subspecialist - you should understand that it is important to follow up the above instruction , and "not following the above instruction" may cause delayed or missed care of your medical conditions which may cause permanent organ damage and even . Total Time Spent: Greater than 30 minutes This includes examination of the patient, discharge planning, medication reconciliation, and communication with other providers. Discharge Instructions Please refer to the electronic Patient Visit Report (Discharge Instructions) for additional information. Additional Copies To Jason Flores III, CRNP; Tomer Coffey M.D.
[2016-10-06] MEDS: ONDANSETRON INJ 2 MG/ML 2 ML VIAL IV PRN (14:11)
== END 2016-10-06 14:35 | disposition home or self-care (01) | DRG 330 ==
LOC: ENRESERVDT → ENRESERVTM → C.EDB 00:59 → C.MED 06:19 → C.4E 21:59 → OBSVTOIN 09-29 12:58 → C.MSW 09-29 13:30
PROVIDERS: ADMIT Internal Medicine; ATTEND Hospitalist
PROC: 0DB80ZZ Excision of Small Intestine, Open Approach (ICD-10-PCS; principal; 2016-09-29 10:45)
PROC: 0DTJ0ZZ Resection of Appendix, Open Approach (ICD-10-PCS; 2016-09-29 10:45)
PROC: 0WQF0ZZ Repair Abdominal Wall, Open Approach (ICD-10-PCS; 2016-09-29 10:45)
DX: K50.912 Crohn's disease, unspecified, with intestinal obstruction (principal); K91.3 Postprocedural intestinal obstruction; K46.9 Unspecified abdominal hernia without obstruction or gangrene; Q43.0 Meckel's diverticulum (displaced) (hypertrophic); Y83.8 Other surgical procedures as the cause of abnormal reaction of the patient, or of later complication, without mention of misadventure at the time of the procedure; K76.89 Other specified diseases of liver; Z83.3 Family history of diabetes mellitus; Z82.49 Family history of ischemic heart disease and other diseases of the circulatory system